=== PATIENT | male | born 1965 | race Caucasian/White ===

== ENCOUNTER 2017-09-11 14:45 | Emergency (ER) | payer MEDICARE ==
[~2017-09-11] VITALS: Ht 190.5 cm; Wt 157.4 kg
[~2017-09-11 14:45] MED LIST: BUMEX; BUMEX1 MG PO; COLCRYS0.6 MG PO; DEMADEX10 MG PO; K-DUR20 ME1; KLOR-CON M2020 MEQ PO; LUNESTA1 MG PO; METFORMIN HCL500 M2 PO; METOLAZONE5 MG PO; NORCO 5-325 TA1 EACH PO; TEMAZEPAM; ULORIC80 MG PO; Z.0.ALDACTONE25 MG; Z.0.COREG12.5 MG; Z.0.PRINIVIL20 MG PO
[2017-09-11] MEDS ORDERED: GABAPENTIN300 MG PO (15:59)
[2017-09-11 16:11] VITALS: BP 110/72
== END 2017-09-11 16:06 | disposition home or self-care (01) ==
LOC: FSED 14:45
DX: M79.662 Pain in left lower leg (principal); S84.12XA Injury of peroneal nerve at lower leg level, left leg, initial encounter; G62.9 Polyneuropathy, unspecified; B35.1 Tinea unguium
CPT/HCPCS: 99284

== ENCOUNTER 2018-09-01 16:28 | Emergency (ER) | payer MEDICARE ==
[~2018-09-01] VITALS: Ht 190.5 cm; Wt 160.1 kg
[~2018-09-01 16:28] MED LIST changes: +GABAPENTIN300 MG PO
--- OUTSIDE RECORDS SUMMARY | 2018-09-01 16:33 | XMS REPORT | Clinical Summary ---
Author Author [facility] Address Unknown Phone Unavailable Care Team Providers Care Integrity Assessor Name Role Phone Asked, No Pcp PCP Unavailable Allergies Not on File Medications Not on file Active Problems Not on file Encounters Care Team Description Date Type Specialty Janki Hampton MD Diabetic foot ulcer with osteomyelitis (HCC) (Primary Dx) 04/19/2018 Lab Lab Janki Hampton MD 04/19/2018 Orders Only General Internal Medicine Mukund Rasheed RN 04/04/2018 Orders Only Wound Care Janki Hampton MD Open wound (Primary Dx) 03/29/2018 Transcribe Wound Care Orders after 08/31/2017 Social History Date Tobacco Use Types Packs/Day Years Used Never Assessed Sex Assigned at Date Recorded Not on file Industry Job Start Date Occupation Not on file Not on file Not on file Travel End Travel History Travel Start No recent travel history available. Last Filed Vital Signs Not on file Plan of Treatment Health Maintenance Due Date Last Done Comments DIABETIC RETINAL EYE EXAM 1964 DIABETIC FOOT EXAM 1974 URINE MICROALBUMIN 1974 COLONOSCOPY SCREENING 2014 SHINGLES VACCINES (#1) 2014 INFLUENZA VACCINE 09/20/2018 02/01/2016 Procedures Comments Procedure Name Priority Date/Time Associated Diagnosis GRAM STAIN Routine 04/19/2018 3:59 PM ICT DEVELOPMENT MANAGER AEROBIC CULTURE Routine 04/19/2018 3:59 PM ICT DEVELOPMENT MANAGER SURGICAL PATHOLOGY Routine 04/19/2018 REQUEST 9:20 AM ICT DEVELOPMENT MANAGER after 08/31/2017 Results * Aerobic culture (04/19/2018 3:59 PM ICT DEVELOPMENT MANAGER) Aerobic culture Staphylococcus aureus [place] isolate [facility] [place] This organism is Methicillin [facility]OSPITAL Resistant. (A) Comment: Specimen Information Specimen Source: Wound Specimen Site: LegLeft Aerobic culture Enterobacter cloacae complex [place] isolate [facility] The performance HOSPITAL characteristics of this assay on this isolate were validated by the Microbiology Laboratory at [facility].This source has not been approved by the U.S. Food and Drug Administration.The results are not intended to be used as the sole means for clinical diagnosis or patient management.The Microbiology Laboratory is authorized under the clinical Laboratory Improvement Amendments of 1988 (CLIA-88) to perform high complexity testing. (A) Specimen Wound Antibiotic Method Susceptibility Organism Ampicillin YANET mcg/mL: Resistant Staphylococcus aureus Clindamycin YANET >2 mcg/mL: Resistant Staphylococcus aureus Cefazolin YANET mcg/mL: Resistant Staphylococcus aureus Erythromycin YANET >4 mcg/mL: Resistant Staphylococcus aureus Linezolid YANET 2 mcg/mL: Susceptible Staphylococcus aureus Minocycline YANET 8 mcg/mL: Resistant Staphylococcus aureus Oxacillin YANET >2 mcg/mL: Resistant Staphylococcus aureus Penicillin G YANET >1 mcg/mL: Resistant Staphylococcus aureus Rifampin YANET <=0.5 mcg/mL: Susceptible Staphylococcus aureus Trimethoprim/Sulfamethoxazole YANET <=0.5/9.5 mcg/mL: Susceptible Staphylococcus aureus Tetracycline YANET >8 mcg/mL: Resistant Staphylococcus aureus Vancomycin YANET 1 mcg/mL: Susceptible Staphylococcus aureus Ampicillin YANET >16 mcg/mL: Resistant Enterobacter cloacae complex Amoxicillin/Clavulanate YANET >16/8 mcg/mL: Resistant Enterobacter cloacae complex Amikacin YANET <=4 mcg/mL: Susceptible Enterobacter cloacae complex Aztreonam YANET <=1 mcg/mL: Susceptible Enterobacter cloacae complex Ceftazidime YANET <=0.5 mcg/mL: Susceptible Enterobacter cloacae complex Ciprofloxacin YANET <=0.5 mcg/mL: Susceptible Enterobacter cloacae complex Ceftriaxone YANET <=0.5 mcg/mL: Susceptible Enterobacter cloacae complex Cefuroxime Sodium YANET >16 mcg/mL: Resistant Enterobacter cloacae complex Cefazolin YANET >32 mcg/mL: Resistant Enterobacter cloacae complex Cefepime YANET <=0.5 mcg/mL: Susceptible Enterobacter cloacae complex Cefoxitin YANET >16 mcg/mL: Resistant Enterobacter cloacae complex Gentamicin YANET 1 mcg/mL: Susceptible Enterobacter cloacae complex Levofloxacin YANET <=1 mcg/mL: Susceptible Enterobacter cloacae complex Meropenem YANET <=0.125 mcg/mL: Susceptible Enterobacter cloacae complex Tobramycin YANET 1 mcg/mL: Susceptible Enterobacter cloacae complex Ampicillin/Sulbactam YANET 16/8 mcg/mL: Resistant Enterobacter cloacae complex Trimethoprim/Sulfamethoxazole YANET <=0.5/9.5 mcg/mL: Susceptible Enterobacter cloacae complex Tetracycline YANET 2 mcg/mL: Susceptible Enterobacter cloacae complex Piperacillin/Tazobactam YANET <=2/4 mcg/mL: Susceptible Enterobacter cloacae complex Ertapenem YANET <=0.125 mcg/mL: Susceptible Enterobacter cloacae complex Tigecycline YANET <=0.5 mcg/mL: Susceptible Enterobacter cloacae complex Performing Organization Address City/[facility] Phone Number [facility] [place] [address] PATHOLOGY AND GENOMIC MEDICINE [address] * Gram stain (04/19/2018 3:59 PM ICT DEVELOPMENT MANAGER) Gram stain Rare WBC's [place] isolate Many Gram positive cocci in [facility] Comment: Specimen Information Specimen Source: Wound Specimen Site: LegLeft Specimen Wound Performing Organization Address [facility] Centercode Phone Number [facility] DEPARTMENT OF [address] [place] [address] PATHOLOGY AND GENOMIC MEDICINE [address] * Surgical pathology request (04/19/2018 9:20 AM ICT DEVELOPMENT MANAGER) [facility] DEPARTMENT OF PATHOLOGY AND GENOMIC MEDICINE Surgical See link below for PDF Lab [facility] DEPARTMENT pathology Report OF PATHOLOGY report AND GENOMIC MEDICINE Result status This is Final Report for [facility] DEPARTMENT [id number] OF PATHOLOGY AND GENOMIC MEDICINE Specimen Performing Organization Address [facility] Centercode Phone Number [facility] DEPARTMENT OF [address] [place] [address] PATHOLOGY AND GENOMIC MEDICINE after 08/31/2017 Insurance Type Payer Benefit Subscriber ID Effective Phone Address Plan / Dates Group HMO AETNA MEDICARE AETNA xxxxxxxx [id number] MEDICARE resent HMO/PPO [facility] Advance Directives Patient has advance care planning documents on file. For more information, michael e contact: Pal Barbosa [address] [place] [address]
--- OUTSIDE RECORDS SUMMARY | 2018-09-01 16:34 | XMS REPORT | Clinical Summary ---
Author Author [facility] Address Unknown Phone Unavailable Care Team Providers Care [employer] Name Role Phone Pcp, No PCP Unavailable Seth Lira Unavailable Allergies Comments Active Allergy Reactions Severity Noted Date Congestion Mold Extracts Other (See High 11/08/2013 Comments) Headache Nitroglycerin Nausea And High 11/08/2013 Vomiting, Other (See Comments) Break out in a sweat Ondansetron Hcl (Pf) Nausea Only, High 11/08/2013 Other (See Comments) Medications End Date Status Medication Sig Dispensed Refills Start Date Active CHOLECALCIFEROL, VITAMIN Take 2 0 D3, (VITAMIN D3 ORAL) capsules by mouth daily . Active COQ10, UBIQUINOL, ORAL Take 1 tablet 0 by mouth daily. Active MULTIVIT-MIN/FA/LYCOPEN/L Take 1 tablet 0 UTEIN (CENTRUM SILVER MEN by mouth ORAL) daily. Active potassium chloride SA Take 1 tablet 180 tablet 3 (K-DUR,KLOR-CON) 20 MEQ (20 mEq 8 tablet total) by mouth 2 (two) times daily. Active loratadine (CLARITIN) 10 Take 10 mg by 0 mg tablet mouth daily as needed . Active pen needle, diabetic 31 Use 4 times 100 each 1 gauge x 3/16" Ndle daily as 8 needed. Active eplerenone (INSPRA) 25 MG Take 1 tablet 180 tablet 3 tablet (25 mg total) 8 by mouth 2 (two) times daily. Active traZODone (DESYREL) 50 MG Take 50 mg by 0 tablet mouth every 8 night as needed. Active insulin aspart U-100 Inject 0.1 9 mL 3 (NOVOLOG) 100 unit/mL mLs (10 Units 8 InPn total) subcutaneousl y 3 (three) times daily with meals. Active insulin aspart U-100 10 UNITS tid 18 mL 3 (NOVOLOG) 100 unit/mL AND SLIDING 8 InPn SCALE IF [id number]=8 UNITS, 151-200=6,201 -250=8 ,251-300=10, 301-350=12 UNITS. Active sacubitril-valsartan Take 1 tablet 180 tablet 3 (ENTRESTO) 97-103 mg Tab by mouth 2 8 (two) times daily. Active allopurinol (ZYLOPRIM) Take 1 tablet 90 tablet 1 300 MG tablet (300 mg 9 total) by mouth daily. Active colchicine (COLCRYS) 0.6 Take 1 tablet 90 tablet 0 mg tablet (0.6 mg 9 total) by mouth daily. Active levothyroxine (SYNTHROID, Take 1 tablet 90 tablet 3 LEVOTHROID) 75 MCG tablet (75 mcg 9 total) by mouth Every morning on an empty stomach. 03/22/2019 Active metOLazone (ZAROXOLYN) Take 1 tablet 12 tablet 0 2.5 MG tablet (2.5 mg 9 total) by mouth once a week Mon. Active ascorbate calcium Take by 0 (VITAMIN C ORAL) mouth. Active LEVEMIR FLEXTOUCH U-100 INJECT 55 18 mL 0 INSULN 100 unit/mL (3 mL) UNITS UNDER 9 InPn injection THE SKIN NIGHTLY Active blood sugar diagnostic Blood sugar 200 strip 2 (GLUCOSE BLOOD) check TID. 9 StrpIndications: type 2 diabetes mellitus, insulin dependant Active LEVEMIR FLEXTOUCH U-100 INJECT 55 18 mL 0 INSULN 100 unit/mL (3 mL) UNITS UNDER 9 InPn injection THE SKIN NIGHTLY Active traMADol (ULTRAM-ER) 100 Take 100 mg 0 MG 24 hr tablet by mouth daily as needed for Pain. Active LEVEMIR FLEXTOUCH U-100 INJECT 55 18 mL 0 INSULN 100 unit/mL (3 mL) UNITS UNDER 9 InPn injection THE SKIN NIGHTLY 08/15/2019 Active torsemide (DEMADEX) 100 Take 1 tablet 180 tablet 3 MG tablet (100 mg 9 total) by mouth 2 (two) times daily. Active metoprolol (TOPROL-XL) 25 TAKE 1 TABLET 90 tablet 11 MG 24 hr tablet IN THE 9 MORNING AND 2 TABLETS IN THE EVENING. 08/16/2019 Active amiodarone (PACERONE) 100 Take 1 tablet 30 tablet 3 MG tablet (100 mg 9 total) by mouth daily. Active gabapentin (NEURONTIN) TAKE 1 60 capsule 0 300 MG capsule CAPSULE(300 9 MG) BY MOUTH TWICE DAILY 11/14/2017 Discontinued insulin detemir (LEVEMIR) Inject 50 0 100 unit/mL (3 mL) InPn Units 5 injection subcutaneousl y nightly . 11/13/2017 Discontinued colchicine (COLCRYS) 0.6 TAKE 1 90 tablet 0 mg tablet TABLET(0.6 7 MG) BY MOUTH DAILY 11/02/2017 Discontinued insulin lispro (HUMALOG) Inject 10 0 100 unit/mL InPn Units 5 subcutaneousl y 3 (three) times daily with meals. 09/05/2017 Discontinued metOLazone (ZAROXOLYN) Take 1 tablet 16 tablet 3 2.5 MG tablet (2.5 mg 7 total) by mouth twice a week , Tuesdays. 11/16/2017 amiodarone (PACERONE) 200 Take 1 tablet 90 tablet 3 MG tablet (200 mg 7 total) by mouth daily. 02/15/2018 Discontinued sacubitril-valsartan Take 1 tablet 180 tablet 3 (ENTRESTO) 97-103 mg Tab by mouth 2 7 (two) times daily. 09/05/2017 Discontinued DIPHENHYDRAMINE HCL Take 1 0 (BENADRYL ORAL) capsule by mouth 3 (three) times daily as needed. 09/05/2017 Discontinued eplerenone (INSPRA) 25 MG Take 1 tablet 90 tablet 3 tablet (25 mg total) 8 by mouth 2 (two) times daily. 11/02/2017 Discontinued gabapentin (NEURONTIN) Take 1 30 capsule 5 300 MG capsule capsule (300 8 mg total) by mouth nightly. 11/07/2017 Discontinued pantoprazole (PROTONIX) Take 40 mg by 0 40 MG tablet mouth daily. 09/05/2017 Discontinued DULoxetine (CYMBALTA) 20 Take 20 mg by 0 MG capsule mouth daily. 10/06/2017 Discontinued allopurinol (ZYLOPRIM) Take 100 mg 0 100 MG tablet by mouth daily. 03/22/2018 Discontinued levothyroxine (SYNTHROID, Take 1 tablet 90 tablet 3 LEVOTHROID) 75 MCG tablet (75 mcg 8 total) by mouth Every morning on an empty stomach. 08/16/2018 Discontinued metoprolol (TOPROL-XL) 25 TAKE 1 TABLET 90 tablet 6 MG 24 hr tablet BY MOUTH IN 8 THE MORNING AND 2 TABLETS IN THE EVENING 10/06/2017 Discontinued colchicine (COLCRYS) 0.6 TAKE 1 90 tablet 3 201 mg tablet TABLET(0.6 8 MG) BY MOUTH DAILY 08/15/2018 Discontinued torsemide (DEMADEX) 100 Take 1 tablet 180 tablet 3 201 MG tablet (100 mg 8 total) by mouth 2 (two) times daily. 11/07/2017 Discontinued sertraline (ZOLOFT) 100 Take 100 mg 0 MG tablet by mouth daily. 03/22/2018 Discontinued metOLazone (ZAROXOLYN) Take 1 tablet 12 tablet 3 2.5 MG tablet (2.5 mg 8 total) by mouth once a week 03/09/2018 Discontinued DULoxetine (CYMBALTA) 20 Take 40 mg by 0 MG capsule mouth daily . 02/13/2018 Discontinued allopurinol (ZYLOPRIM) Take 1 tablet 90 tablet 0 300 MG tablet (300 mg 8 total) by mouth daily. 03/22/2018 Discontinued gabapentin (NEURONTIN) Take 1 60 capsule 2 300 MG capsule capsule (300 8 mg total) by mouth 2 (two) times daily. 02/14/2018 Discontinued colchicine (COLCRYS) 0.6 Take 1 tablet 90 tablet 0 09/24/201 mg tablet (0.6 mg 8 total) by mouth daily. 06/11/2018 Discontinued insulin detemir U-100 Inject 0.55 18 mL 2 (LEVEMIR) 100 unit/mL (3 mLs (55 Units 8 mL) InPn injection total) subcutaneousl y nightly. 03/09/2018 Discontinued UBIQUINONE ORAL Take by 0 mouth. 01/15/2018 acetaminophen-codeine Take 1 tablet 30 tablet 0 (TYLENOL-CODEINE #3) by mouth 8 300-30 mg per tablet every 4 (four) hours as needed for Pain for up to 10 days. Max Daily Amount: 6 tablets 03/22/2018 Discontinued allopurinol (ZYLOPRIM) TAKE 1 90 tablet 0 300 MG tablet TABLET(300 8 MG) BY MOUTH DAILY 03/22/2018 Discontinued colchicine (COLCRYS) 0.6 TAKE 1 90 tablet 0 mg tablet TABLET(0.6 8 MG) BY MOUTH DAILY 08/30/2018 Discontinued gabapentin (NEURONTIN) Take 1 60 capsule 2 300 MG capsule capsule (300 9 mg total) by mouth 2 (two) times daily. 04/01/2018 acetaminophen-codeine Take 1 tablet 30 tablet 0 (TYLENOL-CODEINE #4) by mouth 9 300-60 mg per tablet every 4 (four) hours as needed for Pain for up to 10 days. Max Daily Amount: 6 tablets 04/01/2018 mINOCYCLine Take 1 20 capsule 0 (MINOCIN,DYNACIN) 100 MG capsule (100 9 capsule mg total) by mouth 2 (two) times daily for 10 days. 06/03/2018 traMADol (ULTRAM) 50 mg Take 1 tablet 30 tablet 0 tablet (50 mg total) 9 by mouth every 6 (six) hours as needed for Pain for up to 10 days. Max Daily Amount: 200 mg 06/03/2018 traMADol (ULTRAM) 50 mg Take 1 tablet 20 tablet 0 tablet (50 mg total) 9 by mouth every 6 (six) hours as needed for Pain for up to 10 days. Max Daily Amount: 200 mg 07/01/2018 traMADol (ULTRAM) 50 mg Take 1 tablet 12 tablet 0 tablet (50 mg total) 9 by mouth every 6 (six) hours as needed for Pain for up to 3 days. Max Daily Amount: 200 mg Active Problems Patient Care Coordination Note Interim Testing 2D echo 06/15/18 Summary 1. LV is moderately enlarged. LV function is severely reduced. LVEF is 20-24% LVIDd: 6.4 cm 2. Diastology: Not well evaluated 3. Normal Rv size. Depressed RV function 4. Mild TR. Estimated PASP is 55-60 mm Hg 5. No pericardial effusion ICD Interrogation:03/09/2018 Normal Device function, No therapies, Event monitor, 11/07/17-11/18/17: Findings: Patient had a min HR of 57 bpm, max HR of 119 bpm, and avg HR of 77 bpm. Predominant underlying rhythm was Sinus Rhythm. Intermittent Bundle Branch Block was present. 1 run of Ventricular Tachycardia occurred lasting 4 beats with a max rate of 115 bpm (avg 103 bpm). 1 run of Supraventricular Tachycardia occurred lasting 8 beats with a max rate of 119 bpm (avg 108 bpm). Possible Accelerated Idioventricular Rhythm was present. Isolated SVEs were rare (<1.0%), SVE Couplets were rare (<1.0%), and SVE Triplets were rare (<1.0%). Isolated VEs were occasional (5.0%, 89215), VE Couplets were rare (<1.0%, 633), and VE Triplets were rare (<1.0%, 30). Ventricular Bigeminy and Trigeminy were present. CXR, 03/21/17 IMPRESSION: Two frontal and two lateral images of the chest were provided. The cardiac silhouette is enlarged. There is pulmonary vascular congestion with interstitial reticulation suggesting mild edema. There is no pneumothorax or pleural effusion. Median sternotomy changes and a left chest ICD are noted. There are degenerative spine changes with stable thoracolumbar vertebral wedging dating to 11/04/2015. ICD interrogation 08/05/16 - Normal ICD function is observed - Battery status not at replacement time - Since last interrogation 11/04/14, detected 1 VF episode of sudden onset - V>A conduction, rate 261 bpm - ATP delivered successfully - 12 VT monitor zone and 15 NS-VT episodes US Abd 05/31/2016 1) Complete ultrasound examination of the abdomen was performed. The liver is enlarged measuring 19.1 cm in length along the right midclavicular line and homogeneous in echo-texture without evidence of a focal mass. 2) The patient is status post cholecystectomy. The biliary tract is within normal limits with the common bile duct measuring 3 mm in maximum diameter. 3) The visualized portions of the pancreas are within normal limits. 4) The spleen is enlarged measuring 14.8 cm in length. 5) The right kidney measures 13.9 cm and the left kidney 12.3 cm in maximum size. There is no evidence of cysts, masses, stones or hydronephrosis. 6) The portal vein measures to a maximum of 1.2 cm in diameter. 7) There is no ascites or pleural effusion. 8) The visualized inferior vena cava, hepatic veins and abdominal aorta are within normal limits. 9) The maximum diameter of the abdominal aorta is 2.4 cm. IMPRESSION : Hepatosplenomegaly. Pertinent Tests: Echocardiogram: [03/17/2014] 1. Adequate endocardial definition with contrast agent. 2. The left ventricle is severely dilated. Global LV hypokinesis. 3. Severely decreased overall LV systolic function. Estimated LVEF is 20%. 4. The PA systolic pressure is estimated at 40-45 mmHg. 5. There are changes noted when compared to the previous study done on 02/17/2014, worsening LV function. Ventilation-Perfusion Scan: [] 1. Abnormal exam suggestive of enlarged heart and parenchymal lung disease. 2. Hepatic activity in the washout phase is suggestive of fatty liver. Echocardiogram: [02/17/2014] 1. The endocardium is partially visualized. Even after definity contrast (due to apical foreshortening in part) 2. The left ventricle is moderately dilated. by parasternal dimensions 3. Global LV hypokinesis. 4. Severely decreased overall LV systolic function. based on rather limited windows. Unable to estimate LVEF, but appears < 30% by available views. 5. There is no evidence of aortic regurgitation. 6. Estimated PA systolic pressure is estimated at 30mmHg plus RA pressure. 7. The inferior vena cava is not well visualized. Appears large (high RA pressure) by limited views. 8. There are changes noted when compared to the previous study done on 06/24/11: LV function has significantly worsened and the LV is now moderately dilated, although unable to open prior images. 9. The LVOT VTI is increased (and not decreased) and the reason is not clear. 10. RHC [02/12/14 (at OSH)] PA 45/20/26, RV 45/10, RA 8-10 Cardiac output 3.3L/min (calculated CI 1.14L/min/M2). Left Heart Cath [02/12/14 (at OSH)] eCoronaries normal and right-dominant LVEDP 20-22mmHg Cath: [02/19/2014] RA RV 47/25 PA 47//36 PCWP Shahid CO 5.96 Shahid CI 2.04 Thermodilution CO 6.15 Thermodilution CI 2.11 PVR 1.3WU CXR: [02/16/2014] 1. Cardiomegaly. 2. No acute abnormality. 3. Single-lead in place / ICD generator (likely Medtronic) Problem Noted Date Venous insufficiency 06/28/2018 Venous insufficiency of both lower extremities 05/24/2018 Acute on chronic combined systolic (congestive) and diastolic (congestive) 06/22/2016 heart failure Chronic cutaneous venous stasis ulcer 05/22/2016 Paroxysmal atrial fibrillation 05/22/2016 Diabetes mellitus, insulin dependent (IDDM), controlled 05/22/2016 Cardiomyopathy 03/03/2016 Chronic thromboembolic pulmonary hypertension 02/25/2016 Anxiety 02/25/2016 Chronic kidney disease (CKD) stage G3a/A1, moderately decreased glomerular 02/25/2016 filtration rate (GFR) between 45-59 mL/min/1.73 square meter and albuminuria creatinine ratio less than 30 mg/g AVNRT (AV tee re-entry tachycardia) 01/20/2016 Overview: S/p RFA Pancreatic insufficiency 01/20/2016 Chronic combined systolic and diastolic CHF (congestive heart failure) 05/15/2015 AICD (automatic cardioverter/defibrillator) present,single lead ( 06/05/2014 Medtronic) PTSD (post-traumatic stress disorder) 05/16/2014 Hypothyroid 05/12/2014 Depression 05/12/2014 Hypertension 03/07/2014 AGUSTIN (obstructive sleep apnea) 03/07/2014 Morbid obesity with body mass index of 50 or higher 03/01/2014 Obesity CPAP (continuous positive airway pressure) dependence AICD (automatic cardioverter/defibrillator) present Overview: Medtronic Primary insomnia Encounters Care Team Description Date Type Specialty Tay Phoenix MD 08/30/2018 Refill Cardiology Emanuel Brown RN 08/16/2018 Documentation Transplant Emanuel Brown RN 08/16/2018 Orders Only Transplant Emanuel Brown RN 08/15/2018 Documentation Transplant Emanuel Brown RN 08/15/2018 Orders Only Transplant Tay Phoenix MD 08/04/2018 Refill Cardiology Priyank Hummel MD Chronic combined systolic and diastolic CHF (congestive heart failure) (HCC); Hypothyroidism, unspecified type 07/03/2018 Office Visit Transplant 07/03/2018 Orders Only General Internal Medicine Sherie Askew 07/02/2018 Documentation Transplant Byron Carter MD 06/28/2018 Anesthesia Event Bam Galloway MD ABLATION,ENDOVENOUS 06/28/2018 Surgery Bam Galloway MD 06/28/2018 Hospital Encounter Tay Phoenix MD 06/27/2018 Refill Cardiology Tay Phoenix MD 06/27/2018 Refill Cardiology Joie Murray RN Chronic combined systolic and diastolic CHF (congestive heart failure) (HCC) (Primary Dx); Hypothyroidism, unspecified type 06/18/2018 Orders Only Transplant Priyank Hummel MD Chronic combined systolic and diastolic CHF (congestive heart failure) (HCC) 06/15/2018 Hospital Cardiology Encounter Peggy Amato RN Chronic combined systolic and diastolic CHF (congestive heart failure) (HCC) (Primary Dx) 06/15/2018 Orders Only Transplant Tay Phoenix MD 06/11/2018 Refill Cardiology Steph Sorto, OSKAR 05/24/2018 Anesthesia Event Bam Galloway MD ABLATION,ENDOVENOUS 05/24/2018 Surgery Bam Galloway MD 05/24/2018 Hospital Encounter Steph Sorto, OSKAR 05/16/2018 Anesthesia Pre-Admission Testing Event Bam Galloway MD 05/16/2018 Hospital Pre-Admission Testing Encounter Bam Galloway MD 05/16/2018 Hospital Cardiology Encounter Bam Galloway MD 05/16/2018 Hospital Pre-Admission Testing Encounter Resource, Oqmt Preadmit Phone 05/15/2018 Hospital Pre-Admission Testing Encounter Resource, Oqme Preadmit Phone 05/15/2018 Hospital Pre-Admission Testing Encounter Sherie Askew 05/03/2018 Telephone Transplant Tay Phoenix MD Chronic systolic heart failure (HCC) (Primary Dx); AGUSTIN (obstructive sleep apnea); Hypothyroidism, unspecified type; Venous stasis ulcer of left ankle with fat layer exposed without varicose veins (HCC); Venous ulcer (HCC) 03/22/2018 Office Visit Cardiology Tay Phoenix MD 03/22/2018 Refill Cardiology Tay Phoenix MD 03/17/2018 Refill Cardiology Sherie Askew 03/14/2018 Documentation Central Scheduling Priyank Hummel MD Chronic combined systolic and diastolic CHF (congestive heart failure) (HCC); Dilated cardiomyopathy (HCC); Diabetes mellitus, insulin dependent (IDDM), controlled (HCC) 03/09/2018 Office Visit Transplant Sharda Guerra RN 03/09/2018 Telephone Cardiology Sherie Askew 02/22/2018 Documentation Transplant Emanuel Brown RN 02/15/2018 Documentation Transplant Emanuel Brown RN 02/15/2018 Orders Only Transplant Tay Phoenix MD 02/14/2018 Refill Cardiology Tay Phoenix MD 02/13/2018 Refill Cardiology Sherie Askew 02/01/2018 Telephone Transplant Janki Hampton MD No Show 01/08/2018 Office Visit Wound Care Tay Phoenix MD Chronic systolic heart failure (HCC) (Primary Dx); AGUSTIN (obstructive sleep apnea); Hypothyroidism, unspecified type; Dilated cardiomyopathy (HCC); Type 2 diabetes mellitus without complication, with long-term current use of insulin (HCC); Chronic kidney disease (CKD) stage G3a/A1, moderately decreased glomerular filtration rate (GFR) between 45-59 mL/min/1.73 square meter and albuminuria creatinine ratio less than 30 mg/g (HCC); Morbid obesity with body mass index of 50 or higher (HCC); Chronic combined systolic and diastolic CHF (congestive heart failure) (HCC) 01/05/2018 Office Visit Cardiology Joie Murray RN Chronic combined systolic and diastolic CHF (congestive heart failure) (HCC) (Primary Dx) 12/19/2017 Orders Only Transplant Janki Hampton MD 12/14/2017 Office Visit Wound Tay Diaz MD 11/14/2017 Refill Cardiology Tay Phoenix MD 11/13/2017 Refill Cardiology Priyank Hummel MD Chronic combined systolic and diastolic CHF (congestive heart failure) (HCC); Dilated cardiomyopathy (HCC); On amiodarone therapy 11/07/2017 Office Visit Transplant Tay Phoenix MD 11/02/2017 Refill Cardiology Sharda Guerra RN 11/02/2017 Telephone Cardiology Tay Phoenix MD 11/02/2017 Refill Cardiology Janki Hampton MD 10/30/2017 Office Visit Wound Joie Pinon RN Chronic combined systolic and diastolic CHF (congestive heart failure) (HCC) (Primary Dx); AICD (automatic cardioverter/defibrillator) present,single lead ( Medtronic) 10/10/2017 Orders Only Transplant Tay Phoenix MD Other secondary chronic gout of elbow with tophus, unspecified laterality (Primary Dx); Dilated cardiomyopathy (HCC); AGUSTIN (obstructive sleep apnea); Chronic kidney disease (CKD) stage G3a/A1, moderately decreased glomerular filtration rate (GFR) between 45-59 mL/min/1.73 square meter and albuminuria creatinine ratio less than 30 mg/g 10/06/2017 Office Visit Cardiology Sharda Guerra RN 10/06/2017 Telephone Cardiology Tay Phoenix MD 10/06/2017 Orders Only Cardiology Janki Hampton MD 09/25/2017 Office Visit Wound Care Sharda Guerra RN 09/20/2017 Telephone Cardiology Sharda Guerra RN 09/19/2017 Telephone Cardiology Sharda Guerra RN 09/11/2017 Telephone Cardiology Priyank Hummel MD Chronic combined systolic and diastolic CHF (congestive heart failure) (HCC); Dilated cardiomyopathy (HCC); On amiodarone therapy; Diabetes mellitus, insulin dependent (IDDM), controlled (HCC) 09/05/2017 Office Visit Transplant 09/05/2017 Orders Only General Internal Medicine after 08/31/2017 Immunizations Name Dates Previously Given Next Due Influenza TIV (IM) 12/30/2016, 03/06/2014 Pneumococcal Conjugate 03/06/2012 7-Valent Family History Medical History Relation Name Comments Diabetes Father Hypertension Father Hyperlipidemia Mother Hypertension Mother Relation Name Status Comments Father Mother Social History Date Tobacco Use Types Packs/Day Years Used Former Smoker Smokeless Tobacco: Never Used Alcohol Use Drinks/Week oz/Week Comments No Sex Assigned at Date Recorded Not on file Industry Job Start Date Occupation Not on file Not on file Not on file Travel End Travel History Travel Start No recent travel history available. Last Filed Vital Signs Time Taken Vital Sign Reading 07/03/2018 1:53 PM CDT Blood Pressure 93/52 07/03/2018 1:53 PM CDT Pulse 82 07/03/2018 1:53 PM CDT Temperature 36.5 C (97.7 F) 07/03/2018 1:53 PM CDT Respiratory Rate 20 07/03/2018 1:53 PM CDT Oxygen Saturation 96% - Inhaled Oxygen - Concentration 07/03/2018 1:53 PM CDT Weight 159.2 kg (351 lb) 07/03/2018 1:53 PM CDT Height 190.5 cm (6' 3") 07/03/2018 1:53 PM CDT Body Mass Index 43.87 Plan of Treatment Care Team Description Date Type Specialty Priyank Hummel MD [address] [facility] [id number] [place] [address] [phone] 10/02/2018 Office Visit Transplant Procedures Comments Procedure Name Priority Date/Time Associated Diagnosis CBC W/PLT COUNT & AUTO STAT 07/03/2018 Chronic combined systolic DIFFERENTIAL 2:11 PM CDT and diastolic CHF (congestive heart failure) (HCC) TSH/FREE T4 IF INDICATED Routine 07/03/2018 Hypothyroidism, 2:11 PM CDT unspecified type BASIC METABOLIC PANEL (7) STAT 07/03/2018 Chronic combined systolic 2:11 PM CDT and diastolic CHF (congestive heart failure) ([facility]) CBC W/PLT COUNT & AUTO STAT 07/03/2018 Chronic combined systolic DIFFERENTIAL 2:11 PM CDT and diastolic CHF (congestive heart failure) ([facility]) ECG 12-LEAD Routine 07/03/2018 10:55 AM CDT Procedure Note - Interface, External Ris In - 07/03/2018 3:27 PM CDT Ventricula r Rate 69 BPM Atrial Rate 69 BPM P-R Interval 156 ms QRS Duration 116 ms Q-T Interval 480 ms QTC Calculatio n(Bazett) 514 ms P [place] 45 degrees R [place] 6 degrees T [place] 73 degrees Normal sinus rhythm Prolonged QT Abnormal ECG When compared with ECG of 9 15:05, No significan t change was found ECG 12-LEAD Routine 07/03/2018 Chronic combined systolic 10:55 AM CDT and diastolic CHF (congestive heart failure) ([facility]) POCT-GLUCOSE METER Routine 06/28/2018 12:17 PM CDT ABLATION,ENDOVENOUS 06/28/2018 Venous reflux 9:30 AM CDT Special Needs Hx of PTSD related to past OR experience (see notes). BASIC METABOLIC PANEL (7) Routine 06/28/2018 7:59 AM CDT BUN AND CREATININE Routine 06/28/2018 7:59 AM CDT HEMOGLOBIN Routine 06/28/2018 7:59 AM CDT POCT-GLUCOSE METER Routine 06/28/2018 7:57 AM CDT ECHOCARDIOGRAM REPORT - 06/15/2018 SCAN 9:22 PM CDT 2D ECHO W/ DOPPLER Routine 06/15/2018 Chronic combined systolic (CW/PW/COLOR) 2:31 PM CDT and diastolic CHF (congestive heart failure) ([facility]) ARRYTHMIA IMPLANT REPORT 06/01/2018 - SCAN 3:31 PM CDT ARRYTHMIA IMPLANT REPORT 06/01/2018 - SCAN 5:50 AM CDT TRANSFUSION SERVICE 05/25/2018 REPORT - SCAN 5:55 PM CDT RHYTHM STRIP - SCAN 05/25/2018 1:23 PM CDT HGB/HCT (H&H) - STAT LAB Routine 05/24/2018 8:55 AM CDT GLUCOSE-STAT LAB Routine 05/24/2018 8:55 AM CDT POTASSIUM-STAT LAB Routine 05/24/2018 8:55 AM CDT SODIUM NA-STAT LAB Routine 05/24/2018 8:55 AM CDT BLOOD GAS, ARTERIAL Routine 05/24/2018 8:55 AM CDT RRL CRITICAL LABS Routine 05/24/2018 (ABG,NA,K,H&H,GLUCOSE) 8:55 AM CDT ABLATION,ENDOVENOUS 05/24/2018 Venous reflux 7:30 AM CDT Special Needs Pt has PTSD related to past OR experience . See notes. TYPE AND SCREEN, STAT 05/24/2018 AUTOMATED 7:05 AM CDT POCT-GLUCOSE METER Routine 05/24/2018 5:58 AM CDT HEMOGLOBIN Routine 05/16/2018 2:26 PM CDT GLUCOSE Routine 05/16/2018 2:26 PM CDT ELECTROLYTE PANEL Routine 05/16/2018 2:26 PM CDT BUN AND CREATININE Routine 05/16/2018 2:26 PM CDT ECG 12-LEAD Routine 03/09/2018 3:05 PM [employer] [employer] [employer] Procedure Note - Interface, External Ris In - 03/09/2018 3:11 PM [employer] Ventricula r Rate 73 BPM Atrial Rate 73 BPM P-R Interval 162 ms QRS Duration 120 ms Q-T Interval 494 ms QTC Calculatio n(Bazett) 544 ms P [place] 33 degrees R [place] -7 degrees T [place] 48 degrees Normal sinus rhythm Non-specif ic intra-vent ricular conduction delay Borderline [place] [address] 8 12:40, Premature ventricula r complexes are no longer Present Aberrant conduction is no longer Present ECG 12-LEAD Routine 03/09/2018 Chronic combined systolic 3:05 PM [employer]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 (congestive heart failure) (HCC) Dilated cardiomyopathy (HCC) CBC W/PLT COUNT & AUTO STAT 03/09/2018 Chronic combined systolic DIFFERENTIAL 1:43 PM [employer]EARCH 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 (congestive heart failure) ([facility]) HEMOGLOBIN A1C AP Routine 03/09/2018 Diabetes mellitus, 1:43 PM [employer]Y insulin dependent (IDDM), controlled ([facility]) BASIC METABOLIC PANEL (7) STAT 03/09/2018 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 [employer]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 (congestive heart failure) ([facility]) CBC W/PLT COUNT & AUTO STAT 03/09/2018 Chronic combined systolic DIFFERENTIAL 1:43 PM [employer]LE[employer]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 (congestive heart failure) (HCC) MISCELLANEOUS LAB ORDER Routine 03/09/2018 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 (congestive heart failure) ([facility]) BASIC METABOLIC PANEL (7) Routine 01/05/2018 Chronic systolic heart 10:54 AM [employer]EARCH ASSOC[employer]ATE MOLECULAR BIOLOGY failure (HCC) MISCELLANEOUS LAB ORDER Routine 11/07/2017 Chronic combined systolic 12:49 PM CDT and diastolic CHF (congestive heart failure) ([facility]) CBC W/PLT COUNT & AUTO STAT 11/07/2017 Chronic combined systolic DIFFERENTIAL 12:43 PM CDT and diastolic CHF (congestive heart failure) (HCC) TSH/FREE T4 IF INDICATED Routine 11/07/2017 Chronic combined systolic 12:43 PM CDT and diastolic CHF (congestive heart failure) (HCC) On amiodarone therapy BASIC METABOLIC PANEL (7) STAT 11/07/2017 Chronic combined systolic 12:43 PM CDT and diastolic CHF (congestive heart failure) (HCC) CBC W/PLT COUNT & AUTO STAT 11/07/2017 Chronic combined systolic DIFFERENTIAL 12:43 PM CDT and diastolic CHF (congestive heart failure) (HCC) ECG 12-LEAD Routine 11/07/2017 12:40 PM CDT Procedure Note - Interface, External Ris In - 11/07/2017 3:36 PM CDT Ventricula r Rate 81 BPM Atrial Rate 81 BPM P-R Interval 156 ms QRS Duration 106 ms Q-T Interval 442 ms QTC Calculatio n(Bazett) 513 ms P [place] 43 degrees R [place] 1 degrees T [place] 62 degrees Sinus rhythm with occasional Premature ventricula r complexes and Possible Premature atrial complexes with Aberrant conduction Low voltage QRS Cannot rule out Anterior infarct (cited on or before 8) Prolonged QT Abnormal ECG When compared with ECG of 8 14:47, No significan t change was found ECG 12-LEAD Routine 11/07/2017 Chronic combined systolic 12:40 PM CDT and diastolic CHF (congestive heart failure) ([facility]) Dilated cardiomyopathy ([facility]) URIC ACID STAT 10/06/2017 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, unspecified laterality ECG 12-LEAD Routine 09/05/2017 2:47 PM CDT Procedure Note - Interface, External Ris In - 09/05/2017 2:55 PM CDT Ventricula r Rate 74 BPM Atrial Rate 74 BPM P-R Interval 156 ms QRS Duration 114 ms Q-T Interval 494 ms QTC Calculatio n(Bazett) 548 ms P [place] 40 degrees R [place] -19 degrees T [place] 111 degrees Sinus rhythm with occasional Premature ventricula r complexes and Possible Premature atrial complexes with Aberrant conduction Cannot rule out Anterior infarct , age undetermin ed Prolonged QT Abnormal ECG When compared with ECG of 8 15:05, Aberrant conduction is now Present ECG 12-LEAD Routine 09/05/2017 Chronic combined systolic 2:47 PM CDT and diastolic CHF (congestive heart failure) ([facility]) Dilated cardiomyopathy ([facility]) CBC W/PLT COUNT & AUTO STAT 09/05/2017 Chronic combined systolic DIFFERENTIAL 2:34 PM CDT and diastolic CHF (congestive heart failure) ([facility]) HEMOGLOBIN A1C AP Routine 09/05/2017 Diabetes mellitus, 2:34 PM CDT insulin dependent (IDDM), controlled (HCC) TSH/FREE T4 IF INDICATED Routine 09/05/2017 Chronic combined systolic 2:34 PM CDT and diastolic CHF (congestive heart failure) (HCC) On amiodarone therapy HEPATIC FUNCTION PANEL STAT 09/05/2017 Chronic combined systolic 2:34 PM CDT and diastolic CHF (congestive heart failure) (HCC) On amiodarone therapy BASIC METABOLIC PANEL (7) STAT 09/05/2017 Chronic combined systolic 2:34 PM CDT and diastolic CHF (congestive heart failure) (HCC) CBC W/PLT COUNT & AUTO STAT 09/05/2017 Chronic combined systolic DIFFERENTIAL 2:34 PM CDT and diastolic CHF (congestive heart failure) (HCC) after 08/31/2017 Results * TSH/Free T4 If Indicated (07/03/2018 2:11 PM CDT) Only the most recent of 3 results within the time period is included. TSH 1.89 0.35 - 4.94 uIU/mL [facility] Specimen Blood Performing Organization Address City/State/Zipcode Phone Number [facility] [address] [place] [address] [facility] * CBC with platelet count + automated diff (07/03/2018 2:11 PM CDT) Only the most recent of 4 results within the time period is included. WBC 3.8 3.5 - 10.5 K/L [facility] RBC 4.55 (L) 4.63 - 6.08 M/L [facility] Hemoglobin 13.7 13.7 - 17.5 GM/DL [facility] Hematocrit 41.8 40.1 - 51.0 % [facility] MCV 91.9 79.0 - 92.2 fL [facility] MCH 30.1 25.7 - 32.2 pg [facility] MCHC 32.8 32.3 - 36.5 GM/DL [facility] RDW 15.8 (H) 11.6 - 14.4 % [facility] Platelets 143 (L) 150 - 450 K/CU MM [facility] MPV 9.9 9.4 - 12.4 fL [facility] nRBC 0 0 - 0 /100 WBC [facility] % Neutros 54 % [facility] % Lymphs 28 % [facility] % Monos 14 % [facility] % Eos 3 % [facility] % Baso 1 % [facility] # Neutros 2.06 1.78 - 5.38 K/L [facility] # Lymphs 1.07 (L) 1.32 - 3.57 K/L [facility] # Monos 0.54 0.30 - 0.82 K/L [facility] # Eos 0.11 0.04 - 0.54 K/L [facility] # Baso 0.04 0.01 - 0.08 K/L [facility] Immature 0 0 - 1 % [facility] Granulocytes-Relative [facility] Specimen Blood Performing Organization Address City/State/Zipcode Phone Number [facility] [address] [place] [address] [facility] * Basic Metabolic Panel (07/03/2018 2:11 PM CDT) Only the most recent of 6 results within the time period is included. Sodium 138 136 - 145 meq/L [facility] Potassium 4.2Comment: Specimen slightly 3.5 - 5.1 meq/L [facility] hemolyzed [facility] Chloride 102 98 - 107 meq/L [facility] CO2 25 22 - 29 meq/L [facility] BUN 52 (H) 7 - 21 mg/dL [facility] Creatinine 1.54 (H)Comment: Specimen 0.57 - 1.25 mg/dL [facility] slightly hemolyzed [facility] Glucose 167 (H) 70 - 105 mg/dL [facility] Calcium 9.7 8.4 - 10.2 mg/dL [facility] EGFR 47Comment: ESTIMATED GFR IS mL/min/1.73 sq m [facility] NOT ACCURATE CREATININE [facility] CLEARANCE IN PREDICTING GLOMERULAR FILTRATION RATE. ESTIMATED GFR IS NOT APPLICABLE FOR DIALYSIS PATIENTS. Specimen Blood Performing Organization Address City/State/Zipcode Phone Number [facility] [address] [place] [address] [facility] * ECG 12 lead (07/03/2018 10:55 AM CDT) Only the most recent of 4 results within the time period is included. Specimen Narrative Performed At Ventricular Rate 69 BPM GE MUSE Atrial Rate 69 BPM P-R Interval 156 ms QRS Duration 116 ms Q-T Interval 480 ms QTC Calculation(Bazett) 514 ms P [place] 45 degrees R [place] 6 degrees T [place] 73 degrees Normal sinus rhythm Prolonged QT Abnormal ECG When compared with ECG of 09-MAR-2018 15:05, No significant change was found Confirmed by Bunny MARCELO, SIERRA ([id number]) on 07/04/2018 1:12:09 PM Procedure Note Interface, External Ris In - 07/04/2018 1:12 PM CDT Ventricular Rate 69 BPM Atrial Rate 69 BPM P-R Interval 156 ms QRS Duration 116 ms Q-T Interval 480 ms QTC Calculation(Bazett) 514 ms P [place] 45 degrees R [place] 6 degrees T [place] 73 degrees Normal sinus rhythm Prolonged QT Abnormal ECG When compared with ECG of 09-MAR-2018 15:05, No significant change was found Confirmed by Bunny MARCELO, SIERRA ([id number]) on 07/04/2018 1:12:09 PM Performing Organization Address City/State/Zipcode Phone Number [facility] * POC-Glucose meter (06/28/2018 12:17 PM CDT) Only the most recent of 3 results within the time period is included. POC-Glucose Meter 150 (H)Comment: TESTED AT 70 - 110 mg/dL [facility] [address] [place] [id number] Specimen Blood Performing Organization Address City/[facility] Phone Number [facility] [address] [place] [address] [phone] [address] * BUN and Creatinine (06/28/2018 7:59 AM CDT) Only the most recent of 2 results within the time period is included. BUN 50 (H) 7 - 21 mg/dL [facility] Creatinine 1.35 (H)Comment: Specimen 0.57 - 1.25 mg/dL [facility] moderately hemolyzed [facility] EGFR 55Comment: ESTIMATED GFR IS mL/min/1.73 sq m [facility] NOT ACCURATE CREATININE [facility] CLEARANCE IN PREDICTING GLOMERULAR FILTRATION RATE. ESTIMATED GFR IS NOT APPLICABLE FOR DIALYSIS PATIENTS. Specimen Blood Performing Organization Address City/[facility] Centercode Phone Number [id number] [place] [address] * Hemoglobin (06/28/2018 7:59 AM CDT) Only the most recent of 2 results within the time period is included. Hemoglobin 14.4 13.7 - 17.5 GM/DL [facility] Specimen Blood Performing Organization Address City/[facility] Centercode Phone Number [phone] [place] [address] * ECHOCARDIOGRAM REPORT - SCAN (06/15/2018 9:22 PM CDT) Narrative Performed At * 2D Echo W/Doppler(CW/PW/Color) (06/15/2018 2:31 PM CDT) Ejection Fraction [facility] Specimen Narrative Performed At Transthoracic Echocardiography Report (TTE) [facility] Demographics [facility] Patient Name LUISITO EDWARD Date of Study06/15/2018 SHAISTA [id number] Male Visit Number [id number] Room NumberOP Number Date of Birth1965Referring PhysicianNair Priyank JAIMES Age52 year(s)SonographerNolan Champagne Interpreting Jaime Pendleton MD Physician Procedure Type of Study TTE procedure:2DECHO W DOPPLER(CW/PW/COLOR) Indications:Known or suspected heart failure. Clinical History AICD,CARDIAC ARREST,CPAP,DM,DVT,GOUT,HTN,HYPOTHYROIDISM,NICMP,OBESITY, PANCREATITUS,PHOBIA,PTSD Contrast Medium: Definity. Amount - 2 ml Height: 75 inches Weight: 127.91 kg (282 lbs) BSA: 2.54 m^2 BMI: 35.25 kg/m^2 HR: 96 bpm BP: 118/80 mmHg Summary 1. LV is moderately enlarged. LV function is severely reduced. LVEF is 20-24% 2. Diastology: Not well evaluated 3. Normal Rv size. Depressed RV function 4. Mild TR. Estimated PASP is 55-60 mm Hg 5. No pericardial effusion Previous Study In comparison with the prior exam 06/23/2016 the following changes are noted: PAP higher . Signature Findings Left Ventricle LV endocardium is partially visualized with IV ultrasound enhancing agent. The left ventricle is chamber size (by vol index) is moderately enlarged. Normal LV wall thickness. All of the LV segments are severely hypokinetic . Estimated LVEF by qualitative assessment is severely reduced (20-24%) . Left AtriumLA size is moderately enlarged . Right VentricleRV is partially visualized. RV chamber size is mildly enlarged . Global RV systolic function is depressed . Right Atrium RA size is dilated. RA pacing wire is visualized . Aortic Valve AoV is not well visualized. Mitral Valve Normal MV structure.by limited views Tricuspid ValveMild tricuspid regurgitation. Estimated peak systolic PA pressure is 55-60 mmHg . Pulmonic Valve Normal PV structure and function by limited views and Doppler. AortaAortic root size (SInus of Valsalva diameter) is normal . PericardiumNo evidence of pericardial effusion. IVC/SVC/PA/PV/PleuralThe estimated RA pressure by IVC dynamics 16-20mmHg . Chambers/Structures Left Atrium LA Dimension: 5.33 cmLA Area: 30.88 cm^2 LA Volume: 117.4 ml LA Vol. Index: 46 ml/m^2 Left Ventricle LVIDd: 6.4 cm LV Septum Diastolic: 0.97 cm LV PW Diastolic: 1.15 cm LVEDV Tarango's:248.5 ml LVEDVI: 98 ml/m^2 LVOT Diameter: 2.36 cm Aorta Ao Root S of Betty.: 3.24 cm Doppler/Quantitative Measurements LVOT Peak Velocity: 0.77 m/s Peak Gradient: 2.4 mmHg Mean Velocity: 0.47 m/s Mean Gradient: 1.07 mmHg LVOT Diameter: 2.36 cmLVOT VTI: 13.02 cm LVOT Area: 4.37 cm^2LVOT SV:56.93 ml LVOT CO: 5.46 l/min LVOT CI: 2.15 l/min/m^2 Procedure Note Interface, External Ris In - 06/15/2018 6:41 PM CDT Transthoracic Echocardiography Report (TTE) Demographics Patient Name LUISITO EDWARD Date of Study 06/15/2018 [place] Gender Male Visit Number [id number] Race Room Number OP Number Date of 1965 Referring Physician Estephanie Yost MD Age 52 year(s) 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 Clinical History AICD,CARDIAC ARREST,CPAP,DM,DVT,GOUT,HTN,HYPOTHYROIDISM,NICMP,OBESITY, PANCREATITUS,PHOBIA,PTSD Contrast Medium: Definity. Amount - 2 ml Height: 75 inches Weight: 127.91 kg (282 lbs) BSA: 2.54 m^2 BMI: 35.25 kg/m^2 HR: 96 bpm BP: 118/80 mmHg Summary 1. LV is moderately enlarged. LV function is severely reduced. LVEF is 20-24% 2. Diastology: Not well evaluated 3. Normal Rv size. Depressed RV function 4. Mild TR. Estimated PASP is 55-60 mm Hg 5. No pericardial effusion Previous Study In comparison with the prior exam 06/23/2016 the following changes are noted: PAP higher . Signature Findings Left Ventricle LV endocardium is partially visualized with IV ultrasound enhancing agent. The left ventricle is chamber size (by vol index) is moderately enlarged. Normal LV wall thickness. All of the LV segments are severely hypokinetic . Estimated LVEF by qualitative assessment is severely reduced (20-24%) . Left Atrium LA size is moderately enlarged . Right Ventricle RV is partially visualized. RV chamber size is mildly enlarged . Global RV systolic function is depressed . Right Atrium RA size is dilated. RA pacing wire is visualized . Aortic Valve AoV is not well visualized. Mitral Valve Normal MV structure.by limited views Tricuspid Valve Mild tricuspid regurgitation. Estimated peak systolic PA pressure is 55-60 mmHg . Pulmonic Valve Normal PV structure and function by limited views and Doppler. Aorta Aortic root size (SInus of Valsalva diameter) is normal . Pericardium No evidence of pericardial effusion. IVC/SVC/PA/PV/Pleural The estimated RA pressure by IVC dynamics 16-20mmHg . Chambers/Structures Left Atrium LA Dimension: 5.33 cm LA Area: 30.88 cm^2 LA Volume: 117.4 ml LA Vol. Index: 46 ml/m^2 Left Ventricle LVIDd: 6.4 cm LV Septum Diastolic: 0.97 cm LV PW Diastolic: 1.15 cm LVEDV Tarango's:248.5 ml LVEDVI: 98 ml/m^2 LVOT Diameter: 2.36 cm Aorta Ao Root S of Betty.: 3.24 cm Doppler/Quantitative Measurements LVOT Peak Velocity: 0.77 m/s Peak Gradient: 2.4 mmHg Mean Velocity: 0.47 m/s Mean Gradient: 1.07 mmHg LVOT Diameter: 2.36 cm LVOT VTI: 13.02 cm LVOT Area: 4.37 cm^2 LVOT SV:56.93 ml LVOT CO: 5.46 l/min LVOT CI: 2.15 l/min/m^2 Performing Organization Address [facility] Phone Number [facility] * ARRYTHMIA IMPLANT REPORT - SCAN (06/01/2018 3:31 PM CDT) Only the most recent of 2 results within the time period is included. Narrative Performed At * TRANSFUSION SERVICE REPORT - SCAN (05/25/2018 5:55 PM CDT) Narrative Performed At * RHYTHM STRIP - SCAN (05/25/2018 1:23 PM CDT) Narrative Performed At * Potassium-Stat Lab (05/24/2018 8:55 AM CDT) Potassium 3.7 3.6 - 5.5 meq/L [facility] Specimen Blood, Arterial Performing Organization Address [facility] Phone Number [facility] [address] [place] [address] [address] [facility] * Sodium Na-Stat Lab (05/24/2018 8:55 AM CDT) Sodium 135 135 - 148 meq/L [facility] Specimen Blood, Arterial Performing Organization Address [facility] Phone Number [facility] [address] [place] [address] [facility] * Glucose-Stat Lab (05/24/2018 8:55 AM CDT) Glucose 139 (H) 70 - 110 mg/dL [facility] Specimen Blood, Arterial Performing Organization Address [facility] Phone Number [address] * HGB/HCT (H&H)-Stat Lab (05/24/2018 8:55 AM CDT) Hemoglobin 13.8 13.0 - 16.8 g/dL [facility] Hematocrit 41.0 40.0 - 50.0 % [facility] Specimen Blood, Arterial Performing Organization Address [facility] Phone Number [address] * Blood gas, arterial (05/24/2018 8:55 AM CDT) pH, Arterial 7.38 7.35 - 7.45 [facility] pCO2, Arterial 44 35 - 45 mmHg [facility] pO2, Arterial 476 (H) 80 - 90 mmHg [facility] O2 Sat, Arterial 99.9 (H) 96.0 - 97.0 % [facility] HCO3, Arterial 26 21 - 29 mmol/L [facility] Base Excess, Arterial -0.1 -2.0 - 3.0 mmol/L [facility] Patient Temperature 36.0 C [facility] FIO2 98.0 % [facility] Specimen Blood, Arterial Performing Organization Address [facility] Phone Number [address] * Type and screen, automated (05/24/2018 7:05 AM CDT) ABO/RH AUTOMATED (BEAKER) A POSITIVE [facility] Ab Scrn NEGATIVE [facility] Specimen Blood Performing Organization Address City/[facility]/[place] [address] [phone] * Glucose (05/16/2018 2:26 PM CDT) Glucose 230 (H) 70 - 105 mg/dL [facility] Specimen Blood Performing Organization Address City/[facility] [place] [address] [phone] * Electrolytes (05/16/2018 2:26 PM CDT) Sodium 139 136 - 145 meq/L [facility] Potassium 4.7Comment: Specimen slightly 3.5 - 5.1 meq/L [facility] hemolyzed [facility] Chloride 103 98 - 107 meq/L [facility] CO2 25 22 - 29 meq/L [facility] Specimen Blood Performing Organization Address [facility] [place] [address] [phone] [address] * Miscellaneous lab test (03/09/2018 1:43 PM RESEARCH ASSOCIATE MOLECULAR BIOLOGY) Only the most recent of 2 results within the time period is included. Scan Result [facility] Specimen Blood Narrative Performed At Performing Organization Address City/[facility] Centercode Phone Number [facility] [address] [place], [place] * Hemoglobin A1c (03/09/2018 1:43 PM RESEARCH ASSOCIATE MOLECULAR BIOLOGY) Only the most recent of 2 results within the time period is included. Hemoglobin A1C 7.9 (H) 4.3 - 6.1 % [facility] Specimen Blood Performing Organization Address City/[facility]/Zipcode Phone Number [address] [address] [phone] [place] [address] * Uric acid (10/06/2017 11:30 AM CDT) Uric Acid 11.3 (H) 2.6 - 7.2 mg/dL [facility] Specimen Blood Performing Organization Address City/[facility]/Zipcode Phone Number [facility] [address], [place] [phone] [facility] * Hepatic function panel (09/05/2017 2:34 PM CDT) Protein, Total 5.9 (L)Comment: Specimen 6.0 - 8.3 gm/dL [facility] slightly hemolyzed [facility] Albumin 3.1 (L)Comment: Specimen 3.5 - 5.0 g/dL [facility] slightly hemolyzed [facility] Total Bilirubin 1.3 (H)Comment: Specimen 0.2 - 1.2 mg/dL [facility] Bilirubin, Direct 0.5Comment: Specimen slightly 0.1 - 0.5 mg/dL [facility] Alkaline Phosphatase 77 40 - 150 U/L [facility] AST 22Comment: Specimen slightly 5 - 34 U/L [facility] ALT 20Comment: Specimen slightly 6 - 55 U/L [facility] Specimen Blood Performing Organization Address City/[facility]/Zipcode Phone Number [facility] [address] [place] [address] [facility] after 08/31/2017 Insurance Payer Benefit Subscriber ID Type Phone Address Plan / Group [employer] - MEDICARE MGD CARE [employer] xxxxxxxx [phone] [address] [place] [id number] HMO POS PPO Advance Directives For more information, please contact: [facility] [address] [place], [place] [phone] Date Inactivated Comments Code Status Date Activated 06/28/2018 4:18 PM Full Code 06/28/2018 7:37 AM This code status was determined by: Patient 05/24/2018 2:56 PM Full Code 05/24/2018 5:52 AM This code status was determined by: Patient 06/26/2016 2:00 PM Full Code 06/22/2016 3:25 PM This code status was determined by: Patient 03/25/2016 5:54 PM Full Code 03/21/2016 11:52 PM This code status was determined by: Patient 01/14/2016 12:52 AM Full Code 01/06/2016 7:15 AM This code status was determined by: Patient
--- OUTSIDE RECORDS SUMMARY | 2018-09-01 16:36 | XMS REPORT | Continuity of Care Document ---
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 WATERS Active 11/14/2014 [facility] NE W PATIENT/ LT ANKLE, CROWDER/ SEEN BY Active 08/26/2014 [facility] OPEN WOUND UNSPEC SITE COMPLICATED Active 07/11/2014 07/24/2014 [facility] CHF UNSPECIFIED Active 06/27/2014 08/18/2014 [facility] UNSPECIFIED VENOUS INSUFFICIENCY Active 06/27/2014 08/18/2014 [facility] ULCER OF LOWER LIMB, UNSPECIFIED Active 06/27/2014 08/18/2014 [facility] DIAB JAYNE W/O MENT OF COMP, TYPE II OR UNSP, NS UC Active 06/27/2014 08/18/2014 [facility] UNSPECIFIED ESSENTIAL HYPERTENSION Active 06/27/2014 08/18/2014 [facility] OTHER AND UNSPECIFIED HYPERLIPIDEMIA Active 06/27/2014 08/18/2014 [facility] UNSPECIFIED HYPOTHYROIDISM Active 06/27/2014 08/18/2014 [facility] WOUNDS ON LOWER LEGS - REFERRED FROM Active 05/05/2014 [facility] Medications Medication Details Route Status Patient Instructions Ordering Provider Order Date Source sertraline oral Active 07/22/2014 [facility] docusate sodium oral Active 07/22/2014 [facility] atorvastatin oral Active 07/22/2014 [facility] aluminum-mag hydroxide-simethicone oral Active 07/22/2014 [facility] levothyroxine oral Active 07/22/2014 [facility] oxycodone-acetaminophen oral Active 07/22/2014 [facility] zinc sulfate oral Active 07/22/2014 [facility] digoxin oral Active 07/22/2014 [facility] amiodarone oral Active 07/22/2014 [facility] spironolactone oral Active 07/22/2014 [facility] lisinopril oral Active 07/22/2014 [facility] metolazone oral Active 07/22/2014 [facility] methocarbamol oral Active 07/22/2014 [facility] metoprolol succinate oral Active 07/22/2014 [facility] zolpidem oral Active 07/22/2014 [facility] gabapentin oral Active 07/22/2014 [facility] clonazepam oral Active 07/22/2014 [facility] bumetanide oral Active 07/22/2014 [facility] pantoprazole oral Active 07/22/2014 [facility] insulin detemir subcutaneous Active 07/22/2014 [facility] febuxostat oral Active 07/22/2014 [facility] Pancrelipase 5000 oral WITH MEALS Active 07/22/2014 [facility] Allergies, Adverse Reactions, Alerts Substance Category Reaction Severity Reaction type Status Date Reported Comments Source NITRATES Propensity to adverse reactions [facility] ZOFRAN Propensity to adverse reactions [facility] Immunizations No Data Provided for This Section Results No Data Provided for This Section Pathology Reports No Data Provided for This Section Diagnostic Reports Report Value Date Source Ankle 3 views DX EXAM: XR LEFT ANKLE 3 VIEWS DATE: 2014-09-10 12:12:00 INDICATION: Ulcer of ankle COMPARISON: None available. TECHNIQUE: AP, oblique, and lateral radiographs of the left ankle. FINDINGS: No fracture, dislocation or other acute bony abnormality is identified. Lateral and superior to the lateral malleolus, there is a bandage and a superficial soft tissue defect, with surrounding swelling about the ankle, most in keeping with a shallow ulcer. Deep to this, there is no cortical erosion, osseous destruction, or periosteal reaction to suggest osteomyelitis. 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 IMPRESSION: 1. Shallow ulcer lateral and superior to the lateral malleolus, with no underlying renographic finding to suggest acute osteomyelitis. 2. 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 09/10/2014 [facility] Consultation Notes No Data Provided for This Section Discharge Summaries No Data Provided for This Section History and Physicals No Data Provided for This Section Vital Signs Vital Sign Value Date Comments Source Systolic (mm Hg) 150 08/18/2014 [facility] Diastolic (mm Hg) 76 08/18/2014 [facility] Heart Rate 78 08/18/2014 [facility] Temperature Oral (F) 97.4 F 08/18/2014 [facility] Systolic (mm Hg) 102 07/22/2014 [facility] Diastolic (mm Hg) 62 07/22/2014 [facility] Heart Rate 72 07/22/2014 [facility] Temperature Oral (F) 96.9 F 07/22/2014 Home Health Encounters Location Location Details Encounter Type Encounter Number Reason For Visit Attending Provider ADM Date DC Date Status Source Outpatient [id number] KAMINI LEVIN 07/22/2014 08/18/2014 Home Health [facility] [id number] Jessy Waters 09/10/2014 10/10/2014 [facility] [id number] Jessy Waters 10/17/2014 11/16/2014 [facility] [id number] Jessy Waters 02/23/2015 03/25/2015 [facility] Procedures No Data Provided for This Section Assessment and Plan No Data Provided for This Section Plan of Care Plan of Care Date Source This patient has no known plan of care. 08/18/2014 [facility] This patient has no known plan of care. 07/24/2014 [facility] Social History Social History Date Source No data available for this section 03/25/2015 [facility] This patient has no known social history. 08/18/2014 [facility] Family History No Data Provided for This Section Advance Directives No Data Provided for This Section Functional Status No Data Provided for This Section
[2018-09-01] MEDS ORDERED: SODIUM CHLORIDE 0.9% 1000ML 1,000 ML IV SCH (16:45)
[2018-09-01] MEDS ORDERED: METOPROLOL TART50 MG PO (17:13)
--- NOTE | 2018-09-01 17:51 | Diagnostic Imaging Report ---
EXAM: CT of the abdomen and pelvis WITHOUT contrast HISTORY: Stomach pain COMPARISON: None available. TECHNIQUE: The abdomen and pelvis were scanned utilizing a multidetector helical scanner. Coronal and sagittal reformats are available. PROTOCOL: Routine IV CONTRAST: None, which limits sensitivity and specificity of evaluation of the soft tissues and vascular structures. ORAL CONTRAST: None, which limits sensitivity and specificity of evaluation of the bowel. RADIATION DOSE: Total DLP: 1421.06 mGy*cm Estimated effective dose: (DLP x 0.015 x size factor) Dose modulation, iterative reconstruction, and/or weight based adjustment of the mA/kV was utilized to reduce the radiation dose to as low as reasonably achievable. COMPLICATIONS: None FINDINGS: LOWER THORAX: Implanted cardiac leads. HEPATOBILIARY: No definite focal hepatic lesions. No biliary ductal dilatation. The gallbladder is not seen, correlate for prior cholecystectomy. SPLEEN: No splenomegaly. PANCREAS: Subtle 1.3 cm focal hypodensity at the body of the pancreas (series 2 image 37). No ductal dilation subtle regional fat stranding and small nonspecific lymph nodes. ADRENALS: No adrenal nodule. KIDNEYS/URETERS: No hydronephrosis. No radiopaque stones. A subtle 1 cm hypodensity at the interpolar region of the right kidney, likely a small cyst. A partially exophytic 1 cm hyperdense lesion at the inferior pole of the left kidney. PELVIC ORGANS/BLADDER: The urinary bladder is predominantly decompressed with diffusely thickened appearance of the wall. PERITONEUM / RETROPERITONEUM: No free air or fluid. GI TRACT: On limited evaluation of the gastrointestinal tract, no dilation or wall thickening identified. The appendix appears normal. LYMPH NODES: No pathologically enlarged lymph nodes. VESSELS: Filters within the duplicated inferior vena cava. BONES: Multilevel degenerative changes of the thoracolumbar spine, most notably severe at L5-S1 with bilateral L5 pars interarticularis defects and minimal grade 1 anterolisthesis of L5 on S1. Multiple median sternotomy wires. SOFT TISSUES: Diffuse muscle atrophy. IMPRESSION: 1. Findings which could be seen in the setting of pancreatitis. Correlate with laboratory values. Regarding the subtle pancreatic body hypodensity, this may reflect focal edema; however, recommend a follow-up CT of the abdomen with and without contrast after resolution of acute symptoms (such as in 6-8 weeks) to exclude an underlying lesion. 2. Probable 1 cm hyperdense left renal cyst, this also can be further characterized on the follow-up CT of the abdomen with and without contrast. 3. Probable incidental simple right renal cyst. Signed by: Dr. Pollo Lara D.O., M.M.M. on 09/01/2018 5:48 PM
[2018-09-01] MEDS ORDERED: MORPHINE SULFATE INJ 4 MG/ML INJ 1ML ONE (18:39)
[2018-09-01] MEDS ORDERED: PROMETHAZINE HCL (IM) 25 MG/ML VIAL ONE (19:05)
[2018-09-01] MEDS ORDERED: PROMETHAZINE 12.5MG/ NACL 0.9% 12.5 MG/50 ML BAG IV ONE (19:15)
[2018-09-01] MEDS ORDERED: MORPHINE SULFATE 2 MG/ML SYR 1ML IV STA (19:15)
[2018-09-01] MEDS ORDERED: PROMETHAZINE12.5 M1 PO (19:20)
[2018-09-01] MEDS ORDERED: ULTRAM50 MG PO (19:20)
[2018-09-01] MEDS ORDERED: OMEPRAZOLE20 M1 PO (19:20)
[2018-09-01] MEDS ORDERED: COLACE100 MG PO (19:20)
== END 2018-09-01 19:53 | disposition home or self-care (01) ==
LOC: FSED 16:28
DX: R10.13 Epigastric pain (principal); E86.0 Dehydration; I10 Essential (primary) hypertension; E10.9 Type 1 diabetes mellitus without complications; I25.10 Atherosclerotic heart disease of native coronary artery without angina pectoris; Z95.1 Presence of aortocoronary bypass graft
CPT/HCPCS: 36415; 74176; 80053; 83605; 83690; 85025; 93005; 99284; J2270 ×2; J2550

== ENCOUNTER 2019-09-18 19:28 | Emergency (ER) | payer MEDICARE ==
[~2019-09-18] VITALS: Ht 190.5 cm; Wt 160.1 kg
[~2019-09-18 19:28] MED LIST changes: +COLACE100 MG PO; +METOPROLOL TART50 MG PO; +OMEPRAZOLE20 M1 PO; +PROMETHAZINE12.5 M1 PO; +ULTRAM50 MG PO
[2019-09-18 19:58] LABS: BASOPHILS # (AUTO) 0.1 (0.0-0.1); BASOPHILS % 0.7 % (0.0-1.0); EOSINOPHILS # (AUTO) 0.1 (0.0-0.4); EOSINOPHILS % 0.5 % (0.0-6.0); HEMATOCRIT 54.5 % (38.2-49.6); HEMOGLOBIN 16.5 g/dL (14.0-18.0); LYMPHOCYTES # (AUTO) 2.2 (1.0-3.2); LYMPHOCYTES % 19.1 % (18.0-39.1); MEAN CORPUSCULAR HEMOGLOBIN 27.2 pg (28-32); MEAN CORPUSCULAR HGB CONC 30.3 g/dL (31-35); MEAN CORPUSCULAR VOLUME 89.9 fL (81-99); MONOCYTES # (AUTO) 1.1 (0.2-0.8); MONOCYTES % 10.1 % (4.4-11.3); NEUTROPHILS # (AUTO) 7.8 (2.1-6.9); PLATELET COUNT 283 x10e3/uL (140-360); RED BLOOD COUNT 6.06 x10e6/uL (4.3-5.7); RED CELL DISTRIBUTION WIDTH 19.4 % (11.7-14.4)
[2019-09-18 20:03] LABS: INR 1.33; PROTHROMBIN TIME 17.2 seconds (11.9-14.5)
[2019-09-18 20:04] LABS: PARTIAL THROMBOPLASTIN TIME 32.1 seconds (23.8-35.5)
[2019-09-18 20:13] LABS: ALBUMIN 2.8 g/dL (3.5-5.0); ALBUMIN/GLOBULIN RATIO 0.8 (0.8-2.0); AMYLASE 24 U/L (25-125); ANION GAP 18.1 mmol/L (8-16); CALCIUM 8.9 mg/dL (8.4-10.2); CREATININE, SERUM 1.98 mg/dL (0.72-1.25); LIPASE 16 U/L (8-78)
[2019-09-18 20:17] LABS: POTASSIUM 6.1 mmol/L (3.5-5.1)
--- NOTE | 2019-09-18 20:18 | Emergency Department Note ---
History of Present Illnes History of Present Illness Chief Complaint: General Medicine Complaints History of Present Illness This is a 53 year old male PT AAOX3 PRESENTS TO ED WITH REPORT OF SOB, ABDOMINAL "PRESSURE" SINCE DC'D FROM [facility] DT LAST WEEK; PT REPORTS BALLOON PUMP FOLLOWED BY CARDIAC ABLATION LAST WEEK; RESP ARE EVEN, SHALLOW, UNLABORED, O2 SAT RA 94%; . 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 Any updates have been documented here. Past Medical History Recent Fever: No Clinical Suspicion of Infectio: No New/Unexplained Change in Ment: No Past Medical History: Hypertension, Diabetes, A-Fib Other Medical History: PANCREATITS, CHF, MA Past Surgical History: Cholecysctectomy, CABG, Hernia Repair Other Surgery: icd placement, cardiac washout, multiple heart surgeries, cholecystectomy, Social History Smoking Cessation: Never Smoker Counseling Performed: No Alcohol Use: None Any Illegal Drug Use: No Family History Family history of heart diseas: Yes Other family history HTN,DM,CAD Other Last Tetanus: UTD Review of Systems Review of Systems Constitutional: Reports no symptoms EENTM: Reports no symptoms Cardiovascular: Reports no symptoms Respiratory: Reports as per HPI Gastrointestinal: Reports as per HPI Genitourinary: Reports no symptoms Musculoskeletal: Reports no symptoms Integumentary: Reports no symptoms Neurological: Reports no symptoms Psychological: Reports no symptoms Endocrine: Reports no symptoms Hematological/Lymphatic: Reports no symptoms Physical Exam Related Data Allergies: Coded Allergies: nitroglycerin (Verified Allergy, Severe, RASH, 05/21/16) ondansetron HCl (Verified Allergy, Unknown, 05/21/16) Triage Vital Signs Vital Signs Date Time Temp Pulse Resp B/P (MAP) Pulse Ox O2 Delivery O2 Flow Rate FiO2 09/18/19 19:53 98.6 110 25 115/81 96 Room Air 4.0 Vital signs reviewed: Yes Physical Exam CONSTITUTIONAL Constitutional: Present well-developed, Present well-nourished HENT HENT: Present normocephalic, Present atraumatic, Present oropharynx clear/ moist, Present nose normal HENT L/R: Present left ext ear normal, Present right ext ear normal EYES Eyes: Reports PERRL, Reports conjunctivae normal NECK Neck: Present ROM normal PULMONARY Pulmonary: Present effort normal, Present other (BREATH SOUNDS DECREASED THROUGH OUT) CARDIOVASCULAR Cardiovascular: Present irregular rhythm, Present heart sounds normal, Present capillary refill normal, Present tachycardia (108) GASTROINTESTINAL Abdominal: Present soft, Present bowel sounds normal, Present tender (MILD DIFFUSE TENDERNESS) GENITOURINARY Genitourinary: Present exam deferred SKIN Skin: Present warm, Present dry MUSCULOSKELETAL Musculoskeletal: Present ROM normal, Present swelling (3+PITING EDEMA TO BILATERAL LOWER EXTREMITIES) NEUROLOGICAL Neurological: Present alert, Present oriented x 3, Present no gross motor or sensory deficits PSYCHOLOGICAL Psychological: Present mood/affect normal, Present judgement normal Results Laboratory Result Diagram: 09/18/191934 Laboratory Laboratory Tests Test 09/18/19 20:55 09/18/19 19:35 Urine Color Yellow (YELLOW) Urine Clarity Sl cloudy (CLEAR) Urine pH 6 (5 - 7) Urine Specific [place] 1.020 (1.010-1.025) Urine Protein Trace (NEGATIVE) Urine Glucose (UA) 1+ (NEGATIVE) Urine Ketones Negative (NEGATIVE) Urine Blood Moderate (NEGATIVE) Urine Nitrite Negative (NEGATIVE) Urine Bilirubin Negative (NEGATIVE) Urine Urobilinogen 0.2 mg/dL (0.2 - 1) Urine Leukocyte Esterase Negative (NEGATIVE) Urine RBC 6-10 /HPF (0-5) Urine WBC None /HPF (0-5) Urine Epithelial Cells None /LPF (NONE) Urine Bacteria Moderate /HPF (NONE) Urine Hyaline Casts 2-5 (0-1) White Blood Count 11.24 x10e3/uL (4.8-10.8) Red Blood Count 6.06 x10e6/uL (4.3-5.7) Hemoglobin 16.5 g/dL (14.0-18.0) Hematocrit 54.5 % (38.2-49.6) Mean Corpuscular Volume 89.9 fL (81-99) Mean Corpuscular Hemoglobin 27.2 pg (28-32) Mean Corpuscular Hemoglobin Concent 30.3 g/dL (31-35) Red Cell Distribution Width 19.4 % (11.7-14.4) Platelet Count 283 x10e3/uL (140-360) Neutrophils (%) (Auto) 69.0 % (38.7-80.0) Lymphocytes (%) (Auto) 19.1 % (18.0-39.1) Monocytes (%) (Auto) 10.1 % (4.4-11.3) Eosinophils (%) (Auto) 0.5 % (0.0-6.0) Basophils (%) (Auto) 0.7 % (0.0-1.0) Neutrophils # (Auto) 7.8 (2.1-6.9) Lymphocytes # (Auto) 2.2 (1.0-3.2) Monocytes # (Auto) 1.1 (0.2-0.8) Eosinophils # (Auto) 0.1 (0.0-0.4) Basophils # (Auto) 0.1 (0.0-0.1) Absolute Immature Granulocyte (auto 0.07 x10e3/uL (0-0.1) Prothrombin Time 17.2 seconds (11.9-14.5) Prothromb Time International Ratio 1.33 Activated Partial Thromboplast Time 32.1 seconds (23.8-35.5) Sodium Level 137 mmol/L (136-145) Potassium Level 6.1 mmol/L (3.5-5.1) Chloride Level 104 mmol/L (98-107) Carbon Dioxide Level 21 mmol/L (22-29) Anion Gap 18.1 mmol/L (8-16) Blood Urea Nitrogen 52 mg/dL (7-26) Creatinine 1.98 mg/dL (0.72-1.25) Estimat Glomerular Filtration Rate 35 ML/MIN (60-) BUN/Creatinine Ratio 26 (6-25) Glucose Level 183 mg/dL (74-118) Calcium Level 8.9 mg/dL (8.4-10.2) Total Bilirubin 1.3 mg/dL (0.2-1.2) Aspartate Amino Transf (AST/SGOT) 47 IU/L (5-34) Alanine Aminotransferase (ALT/SGPT) 68 IU/L (0-55) Alkaline Phosphatase 109 IU/L (40-150) Creatine Kinase 32 IU/L (30-200) Creatine Kinase MB 1.50 ng/mL (0-5.0) Troponin I 0.034 ng/mL (0-0.300) B-Type Natriuretic Peptide 377.5 pg/mL (0-100) Total Protein 6.2 g/dL (6.5-8.1) Albumin 2.8 g/dL (3.5-5.0) Globulin 3.4 g/dL (2.3-3.5) Albumin/Globulin Ratio 0.8 (0.8-2.0) Amylase Level 24 U/L (25-125) Lipase 16 U/L (8-78) Laboratory Tests Test 09/18/19 19:35 White Blood Count 11.24 x10e3/uL (4.8-10.8) Red Blood Count 6.06 x10e6/uL (4.3-5.7) Hemoglobin 16.5 g/dL (14.0-18.0) Hematocrit 54.5 % (38.2-49.6) Mean Corpuscular Volume 89.9 fL (81-99) Mean Corpuscular Hemoglobin 27.2 pg (28-32) Mean Corpuscular Hemoglobin Concent 30.3 g/dL (31-35) Red Cell Distribution Width 19.4 % (11.7-14.4) Platelet Count 283 x10e3/uL (140-360) Neutrophils (%) (Auto) 69.0 % (38.7-80.0) Lymphocytes (%) (Auto) 19.1 % (18.0-39.1) Monocytes (%) (Auto) 10.1 % (4.4-11.3) Eosinophils (%) (Auto) 0.5 % (0.0-6.0) Basophils (%) (Auto) 0.7 % (0.0-1.0) Neutrophils # (Auto) 7.8 (2.1-6.9) Lymphocytes # (Auto) 2.2 (1.0-3.2) Monocytes # (Auto) 1.1 (0.2-0.8) Eosinophils # (Auto) 0.1 (0.0-0.4) Basophils # (Auto) 0.1 (0.0-0.1) Absolute Immature Granulocyte (auto 0.07 x10e3/uL (0-0.1) Prothrombin Time 17.2 seconds (11.9-14.5) Prothromb Time International Ratio 1.33 Activated Partial Thromboplast Time 32.1 seconds (23.8-35.5) Lab results reviewed: Yes Imaging Imaging results reviewed: Yes Impressions Procedure: [id number] DX/CHEST SINGLE (PORTABLE) Exam Date: 09/18/19 Exam Time: 2041 REPORT STATUS: Signed EXAMINATION: CHEST SINGLE (PORTABLE) INDICATION: Short of breath, A. fib COMPARISON: Abdominal CT 09/01/2018 FINDINGS: TUBES and LINES: Left chest wall cardiac device with ventricle. LUNGS: Low lung volumes. Lungs are clear. No consolidations. PLEURA: No pleural effusion or pneumothorax. HEART AND MEDIASTINUM: Cardiac size is mildly enlarged. BONES AND SOFT TISSUES: No acute osseous lesion. Soft tissues are unremarkable. Sternotomy wires. UPPER ABDOMEN: No free air under the diaphragm. IMPRESSION: Mild cardiopulmonary and pulmonary vascular congestion. No discrete radiographic airspace disease however lung evaluation limited by suboptimal technique, low lung volumes, and patient body habitus. Signed by: Tim Swanson DO on 09/18/2019 9:16 PM Dictated By: TIM SWANSON DO 15 Transcribed By: OSEI on 09/18/192115 COPY TO: JOSELINE MENDOZA MD~ Procedure: [id number] CT/CT BRAIN WO Exam Date: Exam Time: REPORT STATUS: Signed EXAMINATION: Head CT HISTORY: Altered mental status, shortness of breath, abdominal pain COMPARISON: None. TECHNIQUE: Helical axial images of the head were obtained. Reformatted coronal and sagittal images from the axial data. Dose modulation, iterative reconstruction, and/or weight based adjustment of the mA/kV was utilized to reduce the radiation dose to as low as reasonably achievable. Image quality: Motion/streaking artifact limits the evaluation of the skull base and posterior cranial fossa. FINDINGS: Parenchyma: 1. Cortical and subcortical encephalomalacia in the right medial parietal lobe/precuneus, likely sequela from remote insult such as ischemia, infection or trauma. 2. Few scattered bilateral hypodensities, likely nonspecific chronic microvascular ischemic changes. 3. No mass or hemorrhage. No CT evidence of acute territorial vascular insult. Extra-axial spaces:No abnormal density. No extra-axial fluid collections Brain volume: Normal for age. Ventricles: No hydrocephalus or displacement. Arteries: No density suggestive of thrombus. Dural sinuses: No abnormal density. Foramen magnum: No mass, Chiari malformation, or basilar invagination. Sella: No obvious mass. Paranasal/mastoid sinuses: Imaged portions unremarkable. Skull/Scalp: No lytic or blastic lesions. No fractures. IMPRESSION: 1. No intracranial mass, acute hemorrhage or cortical infarcts. 2. Right medial parietal chronic insult as above. 3. Minimal chronic microvascular ischemic changes. Signed by: Dr. An Hernandez M.D. on 09/18/2019 9:47 PM Dictated By: AN HERNANDEZ MD 46 Transcribed By: OSEI on 09/18/192146 COPY TO: JOSELINE MENDOZA MD~ Procedure: [id number] CT/CT ABDOMEN/PELVIS WO Exam Date: 09/18/19 Exam Time: 2110 REPORT STATUS: Signed EXAM: CT Abdomen and Pelvis WITHOUT contrast INDICATION: Abdominal pain COMPARISON: Abdominal CT 10/24/2013 TECHNIQUE: Abdomen and pelvis were scanned utilizing a multidetector helical scanner from the lung base to the pubic symphysis without administration of IV contrast. Absence of intravenous contrast decreases sensitivity for detection of focal lesions and vascular pathology. Coronal and sagittal reformations were obtained. Routine protocol was performed. IV CONTRAST: None ORAL CONTRAST: None COMPLICATIONS: None RADIATION DOSE: Total DLP: 893 mGy*cm Estimated effective dose: (DLP x 0.015 x size factor) mSv CTDIvol has been reviewed. It is below the limits set by the Radiation Protocol Committee (RPC). Dose modulation, iterative reconstruction, and/or weight based adjustment of the mA/kV was utilized to reduce the radiation dose to as low as reasonably achievable. FINDINGS: LINES and TUBES: Urinary bladder Galindo catheter in place, retention balloon and tip within the bladder lumen.. LOWER THORAX: Cardiomegaly. Partially visualized cardiac device lead, tip in the right ventricle. Calcifications along the right atrial wall. Trace bilateral pleural effusions. Bibasilar atelectasis. HEPATOBILIARY: Slightly nodular hepatic surface contour and caudate hypertrophy. No focal hepatic lesions. No biliary ductal dilation. GALLBLADDER: No radio-opaque stones or sludge. No wall thickening. SPLEEN: Enlarged spleen, measures up to 16.3 cm. PANCREAS: No focal masses or ductal dilatation. ADRENALS: No adrenal nodules KIDNEYS/URETERS: Mild renal parenchymal volume loss. Small renal cysts. A 1.4 cm hyperdense exophytic nodule in the left renal inferior pole, similar compared to 2014. No hydronephrosis. No stones. GI TRACT: No abnormal distention, wall thickening, or evidence of bowel obstruction. Appendix is normal. PELVIC ORGANS/BLADDER: Mild prostatomegaly. Urinary bladder normally distended. Trace air in the nondependent bladder lumen likely due to Galindo catheter placement. LYMPH NODES: No lymphadenopathy. 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 PERITONEUM / RETROPERITONEUM: Trace ascites. No free air. Mild fat stranding in the mesenteric root fat. BONES: Degenerative changes. Bilateral inferior L5 pars defects. Sternotomy wires. SOFT TISSUES: Mild abdominal subcutaneous edema. IMPRESSION: 1. Volume overload with trace bilateral pleural effusions small volume ascites. Mild renal atrophy. Mild cardiomegaly. 2. Mild prostatomegaly. 3. Subtle findings suggestive of hepatic cirrhosis and portal hypertension with splenic megaly and trace ascites. 4. A 1.4 cm hyperdense exophytic nodule in the left renal inferior pole is likely a benign hemorrhagic renal cyst, similar compared to 2013. Signed by: Tim Swanson DO on 09/18/2019 10:33 PM Dictated By: TIM SWANSON DO 32 Transcribed By: OSEI on 09/18/192232 COPY TO: JOSELINE MENDOZA MD~ Procedures 12 Lead ECG Interpretation ECG Interpretation : ECG: ECG 1 [employer]: Interpreted by ED physician Date: Sep 18, 2019 Time: 19:39 Rhythm: atrial flutter Rate: tachycardia BPM: 102 QRS axis: right T waves normal: Yes Q waves: III, aVF, V1, V2, V3 Clinical Impression: abnormal ECG Critical Care Time Total Critical Care Time (min): 31 Critcal care necessary due to: renal failure Critcal care time spent by me: develop tx plan w patient/surrogate, interpret cardiac output measures, evaluation patient response to tx, examination of patient, obtaining hx from patient/surrogate, order/perform tx or interventions, order/review laboratory studies, order/review radiographic studies, pulse oximetry, re-evaluation of patient condition Assessment & Plan Medical Decision Making MDM PT WITH H/O AFIB, HTN,DM, PRESENTS WITH SOB AND ABDOMINAL PRESSURE SINCE BEING RELEASED FROM [facility] 1 WEEK AGO AFTER HAVING AN AORTIC BALLOON PUMP FOLL OWED BY A CARDIAC ABLATION CBC, CMP. AMYLASE, LIPASE, EKG, CXR, CARDIAC ENZYMES, CT ABD/PELVIS ORDERED TO EVAL FOR MYOCARDIAL INFARCTION, ELECTROLYTE ABNORMALITY, PULMONARY EDEMA, RENAL FAILURE, PANCREATITIS, COLITIS, DIVERTICULITIS PT WITH POTASSIUM OF 6.1 KAYEXALATE 30 GRAMS PO ORDERED 1 AMP CALCIUM GLUCONATE IV ORDERED 1 AMP BICARB IV ORDERED REGULAR INSULIN 10 UNITS IV ORDERED 1 AMP D50 IV ORDERED AGLINDO CATH PLACED AND 600 CC URINE OUTPUT, IT IS POSSIBLE ELEVATED POTASSIUM AND RENAL FUNCTION IS RELATED TO URINARY RETENTION pt transferred to [facility] dr araujo accepts pt for transfer Assessment & Plan Final Impression: (1) Hyperkalemia (2) Acute renal insufficiency (3) Atrial flutter (4) Urinary retention (5) Pleural effusion (6) Ascites Depart Disposition: TRANS TO OTHER [facility] Last Vital Signs Date Time Temp Pulse Resp B/P (MAP) Pulse Ox O2 Delivery O2 Flow Rate FiO2 09/18/19 19:59 110 22 115/81 97 Nasal Cannula 4.0 09/18/19 19:53 98.6 Home Meds Active Scripts Promethazine Hcl (PROMETHAZINE HCL) 12.5 Mg Tablet, 12.5 MG PO TID PRN for NAUSEA for 5 Days, #15 Prov:PEPITO IGLESIAS MD 09/01/18 Docusate Sodium (COLACE) 100 Mg Cap, 100 MG PO BID for 10 Days, #20 CAP Prov:PEPITO IGLESIAS MD 09/01/18 Omeprazole (OMEPRAZOLE) 20 Mg Tablet.dr, 20 MG PO DAILY for 14 Days, #14 Prov:PEPITO IGLESIAS MD 09/01/18 Tramadol Hcl (ULTRAM) 50 Mg Tablet, 50 MG PO TID PRN for ABDOMINAL PAIN for 5 Days, #15 TAB Prov:PEPITO IGLESIAS MD 09/01/18 Gabapentin (GABAPENTIN) 300 Mg Capsule, 300 MG PO TID, #90 CAP 0 Refills Prov:DILEEP DAY MD 09/11/17 Reported Medications Metoprolol Tartrate (METOPROLOL TARTRATE) 50 Mg Tablet, 50 MG PO DAILY for HTN, TAB 09/01/18 Hydrocodone Bit/Acetaminophen (NORCO 5-325 TABLET) 1 Each Tablet, 1 EACH PO Q6H, TAB 04/17/15 [Bumex] No Conflict Check 04/04/15 Metolazone (METOLAZONE) 5 Mg Tablet, 5 MG PO PRN, #30 TAB 10/27/13 Potassium Chloride (KLOR-CON M20) 20 Meq Tabcr, 20 MEQ PO BID 10/27/13 Febuxostat (ULORIC) 80 Mg Tablet, 80 MG PO DAILY, #30 TAB 10/24/13 Colchicine (COLCRYS) 0.6 Mg Tablet, 0.6 MG PO BID, #30 TAB 10/24/13 Lisinopril (Prinivil) 20 Mg Tablet, 20 MG PO daily 12/24/10 JOSELINE MENDOZA MD Sep 18, 2019 20:18
[2019-09-18] MEDS ORDERED: SODIUM BICARBONATE 8.4% INJ 50 ML SYR IV STA (20:19)
[2019-09-18] MEDS ORDERED: DEXTROSE 50% SYRINGE 50 ML IV STA (20:19)
[2019-09-18 20:20] LABS: CREATINE KINASE MB 1.5 ng/mL (0-5.0)
[2019-09-18] MEDS ORDERED: INSULIN REGULAR, HUMAN 100 UNIT/1 ML 3ML VIAL IV ONE (20:30)
[2019-09-18] MEDS ORDERED: CALCIUM GLUCONATE 10% INJ 0.465 MEQ/ML VIAL ONE (20:32)
[2019-09-18] MEDS: SOD POLYSTYRENE SULFONATE SUSP 15 GM/60 ML BTL PO ONE (20:35)
--- NOTE | 2019-09-18 20:50 | NUR ---
16 fr veras catheter inserted using sterile technique per orders. 600cc clear yellow urine return noted. md informed. specimen collected per orders and sent to lab.
--- NOTE | 2019-09-18 20:50 | NUR ---
PATIENT REPEATEDLY ASKING FOR ATIVAN SEVERAL TIMES SCREAMING DOWN THE HALLWAY. DR MENDOZA STATED TO PATIENT HE CANNOT HAVE ATIVAN DUE TO LOW BLOOD PRESSURE PRESENTATION. DR MENDOZA INFORMED PATIENT, PATIENTS VOICE TONE SINCE THEN HAS INCREASED WITH STAFF, ATTEMPTS TO CALM PATIENT DOWN HAVE FAILED, DR MENDOZA INFORMED
[2019-09-18] MEDS ORDERED: LIDOCAINE JELLY 2% 10ML URO-JET ONE (20:54)
[2019-09-18] MEDS ORDERED: CALCIUM GLUCONATE 10% INJ 13.95 MEQ in SODIUM CHLORIDE 0.9% 100 ML 100 ML IV ONE (21:00)
[2019-09-18] MEDS ORDERED: LIDOCAINE JELLY 2% 10ML URO-JET TOP ONE (21:00)
[2019-09-18 21:05] LABS: CLARITY,URINE SL CLOUDY (CLEAR); COLOR,URINE YELLOW (YELLOW); LEUKOCYTE ESTERASE ,URINE NEGATIVE (NEGATIVE)
--- NOTE | 2019-09-18 21:05 | NUR ---
ACCIDENT INVESTIGATOR INFORMED PATIENT OF POC / STATUS, PT RESPONDED BY STATING IN RAISED VOICE, "I JUST WANT TO GO DOWNTOWN, YALL WON'T GIVE ME ANY MEDS FOR MY PANIC ATTACKS OR SOME DAMN ICE WATER. YALL ARE RUDE AND CAUSTIC." PATIENT INFORMED OF NEED FOR RAD RESULTS PRIOR TO ANY PO HYDRATION ORDERED BY ER MD AND ASKED TO NOT YELL AT STAFF.
[2019-09-18 21:06] LABS: BILIRUBIN,URINE NEGATIVE (NEGATIVE); KETONES,URINE NEGATIVE (NEGATIVE); NITRITE,URINE NEGATIVE (NEGATIVE); PROTEIN,URINE DIPSTICK TRACE (NEGATIVE); URINE UROBILINOGEN 0.2 mg/dL (0.2 - 1)
[2019-09-18 21:19] LABS: BACTERIA,URINE MODERATE /HPF
--- NOTE | 2019-09-18 21:19 | Diagnostic Imaging Report ---
EXAMINATION: CHEST SINGLE (PORTABLE) INDICATION: Short of breath, A. fib COMPARISON: Abdominal CT 09/01/2018 FINDINGS: TUBES and LINES: Left chest wall cardiac device with ventricle. LUNGS: Low lung volumes. Lungs are clear. No consolidations. PLEURA: No pleural effusion or pneumothorax. HEART AND MEDIASTINUM: Cardiac size is mildly enlarged. BONES AND SOFT TISSUES: No acute osseous lesion. Soft tissues are unremarkable. Sternotomy wires. UPPER ABDOMEN: No free air under the diaphragm. IMPRESSION: Mild cardiopulmonary and pulmonary vascular congestion. No discrete radiographic airspace disease however lung evaluation limited by suboptimal technique, low lung volumes, and patient body habitus. Signed by: Tim Swanson DO on 09/18/2019 9:16 PM
--- NOTE | 2019-09-18 21:30 | NUR ---
PT YELLING OUT. TO ROOM, PT STATES THAT WANTS TO KNOW "WHAT IS GOING ON, WHEN AM I BEING TRANSFERRED." PT INFORMED THAT WAITING ON CT TO INITIATE TRANSFER.
--- NOTE | 2019-09-18 21:51 | Diagnostic Imaging Report ---
EXAMINATION: Head CT HISTORY: Altered mental status, shortness of breath, abdominal pain COMPARISON: None. TECHNIQUE: Helical axial images of the head were obtained. Reformatted coronal and sagittal images from the axial data. Dose modulation, iterative reconstruction, and/or weight based adjustment of the mA/kV was utilized to reduce the radiation dose to as low as reasonably achievable. Image quality: Motion/streaking artifact limits the evaluation of the skull base and posterior cranial fossa. FINDINGS: Parenchyma: 1. Cortical and subcortical encephalomalacia in the right medial parietal lobe/precuneus, likely sequela from remote insult such as ischemia, infection or trauma. 2. Few scattered bilateral hypodensities, likely nonspecific chronic microvascular ischemic changes. 3. No mass or hemorrhage. No CT evidence of acute territorial vascular insult. Extra-axial spaces:No abnormal density. No extra-axial fluid collections Brain volume: Normal for age. Ventricles: No hydrocephalus or displacement. Arteries: No density suggestive of thrombus. Dural sinuses: No abnormal density. Foramen magnum: No mass, Chiari malformation, or basilar invagination. Sella: No obvious mass. Paranasal/mastoid sinuses: Imaged portions unremarkable. Skull/Scalp: No lytic or blastic lesions. No fractures. IMPRESSION: 1. No intracranial mass, acute hemorrhage or cortical infarcts. 2. Right medial parietal chronic insult as above. 3. Minimal chronic microvascular ischemic changes. Signed by: Dr. Nette Hernandez M.D. on 09/18/2019 9:47 PM
--- NOTE | 2019-09-18 21:57 | NUR ---
PT STATES THAT HIS FATHER, REBEKAH VAUGHN, MAY BE INFORMED OF STATUS, POC. PTS FATHER MAY BE CONTACTED AT [phone]
--- NOTE | 2019-09-18 22:00 | NUR ---
PT YELLING OUT. TO ROOM, PT REQUESTING WATER. PT INFORMED THAT UNABLE TO PROVIDE WATER BECAUSE WAITING FOR CT ABDOMEN RESULTS.
--- NOTE | 2019-09-18 22:36 | Diagnostic Imaging Report ---
EXAM: CT Abdomen and Pelvis WITHOUT contrast INDICATION: Abdominal pain COMPARISON: Abdominal CT 10/24/2013 TECHNIQUE: Abdomen and pelvis were scanned utilizing a multidetector helical scanner from the lung base to the pubic symphysis without administration of IV contrast. Absence of intravenous contrast decreases sensitivity for detection of focal lesions and vascular pathology. Coronal and sagittal reformations were obtained. Routine protocol was performed. IV CONTRAST: None ORAL CONTRAST: None COMPLICATIONS: None RADIATION DOSE: Total DLP: 893 mGy*cm Estimated effective dose: (DLP x 0.015 x size factor) mSv CTDIvol has been reviewed. It is below the limits set by the Radiation Protocol Committee (RPC). Dose modulation, iterative reconstruction, and/or weight based adjustment of the mA/kV was utilized to reduce the radiation dose to as low as reasonably achievable. FINDINGS: LINES and TUBES: Urinary bladder Lawson catheter in place, retention balloon and tip within the bladder lumen.. LOWER THORAX: Cardiomegaly. Partially visualized cardiac device lead, tip in the right ventricle. Calcifications along the right atrial wall. Trace bilateral pleural effusions. Bibasilar atelectasis. HEPATOBILIARY: Slightly nodular hepatic surface contour and caudate hypertrophy. No focal hepatic lesions. No biliary ductal dilation. GALLBLADDER: No radio-opaque stones or sludge. No wall thickening. SPLEEN: Enlarged spleen, measures up to 16.3 cm. PANCREAS: No focal masses or ductal dilatation. ADRENALS: No adrenal nodules KIDNEYS/URETERS: Mild renal parenchymal volume loss. Small renal cysts. A 1.4 cm hyperdense exophytic nodule in the left renal inferior pole, similar compared to 2014. No hydronephrosis. No stones. GI TRACT: No abnormal distention, wall thickening, or evidence of bowel obstruction. Appendix is normal. PELVIC ORGANS/BLADDER: Mild prostatomegaly. Urinary bladder normally distended. Trace air in the nondependent bladder lumen likely due to Lawson catheter placement. LYMPH NODES: No lymphadenopathy. 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 PERITONEUM / RETROPERITONEUM: Trace ascites. No free air. Mild fat stranding in the mesenteric root fat. BONES: Degenerative changes. Bilateral inferior L5 pars defects. Sternotomy wires. SOFT TISSUES: Mild abdominal subcutaneous edema. IMPRESSION: 1. Volume overload with trace bilateral pleural effusions small volume ascites. Mild renal atrophy. Mild cardiomegaly. 2. Mild prostatomegaly. 3. Subtle findings suggestive of hepatic cirrhosis and portal hypertension with splenic megaly and trace ascites. 4. A 1.4 cm hyperdense exophytic nodule in the left renal inferior pole is likely a benign hemorrhagic renal cyst, similar compared to 2014. Signed by: Tim Swanson DO on 09/18/2019 10:33 PM
--- NOTE | 2019-09-18 22:42 | NUR ---
PT REPEATEDLY REMOVING FACE MASK WHILE STAFF IN ROOM. PT INSTRUCTED ON KEEPING FACE MASK ON TO PROTECT HIMSELF AND STAFF.
[2019-09-18] MEDS ORDERED: SODIUM CHLORIDE 0.9% 500ML 500 ML IV ONE (22:45)
[2019-09-18] MEDS ORDERED: SODIUM CHLORIDE 0.9% 500ML 500 ML ONE (22:53)
[2019-09-19] MEDS: SOD POLYSTYRENE SULFONATE SUSP 15 GM/60 ML BTL PO ONE (00:39)
--- OUTSIDE RECORDS SUMMARY | 2019-09-20 20:23 | XMS REPORT | Continuity of Care Document ---
Author Author [employer], CHRISTOPHER NOONAN Organization [employer] Address Unknown Phone Unavailable Care Team Providers Care Finishing Manager Name Role Phone [employer] Unavailable Un available Problems Problem Status Onset Date Classification Date Reported Comments Source NHW Active 1 [facility] FU/DB PER DR. WATERS Active 11/14/2014 [facility] NE W PATIENT/ LT ANKLE, CROWDER/ SEEN BY Active 08/26/2014 [facility] OPEN WOUND UNSPEC SITE COMPLICATED Active 07/11/2014 07/24/2014 [facility] CHF UNSPECIFIED Active 06/27/2014 08/18/2014 [facility] UNSPECIFIED VENOUS INSUFFICIENCY Active 06/27/2014 08/18/2014 [facility] ULCER OF LOWER LIMB, UNSPECIFIED Active 06/27/2014 08/18/2014 [facility] DIAB JAYNE W/O MENT OF COMP, TYPE II OR UNSP, NS UC Active 06/27/2014 08/18/2014 [facility] UNSPECIFIED ESSENTIAL HYPERTENSION Active 06/27/2014 08/18/2014 [facility] OTHER AND UNSPECIFIED HYPERLIPIDEMIA Active 06/27/2014 08/18/2014 [facility] UNSPECIFIED HYPOTHYROIDISM Act felix 06/27/2014 08/18/2014 [facility] WOUNDS ON LOWER LEGS - REFERRED FROM Active 05/05/2014 [facility] Medications Medication Details Route Status Patient Instructions [...] 07/22/2014 [facility] spironolactone oral Active 07/22/2014 [facility] lisinopril oral Active 07/22/2014 [facility] metolazone oral Active 07/22/2014 [facility] methocarbamol oral Active 07/22/2014 [facility] metoprolol succinate oral Active 07/22/2014 [facility] zolpidem oral Active 07/22/2014 [facility] gabapentin oral Active 07/22/2014 [facility] clonazepam oral Active 07/22/2014 [facility] bumetanide oral Active 07/22/2014 [facility] pantoprazole oral Active 07/22/2014 [facility] insulin detemir subcutaneous Active 07/22/2014 [facility] febuxostat oral Active 07/22/2014 [facility] Pancrelipase 5000 oral WITH ME ALS Active 07/22/2014 [facility] Allergies, Adverse Reactions, Alerts Substance Category Reaction Severity Reaction type Status Date Reported Comments Source NITRATES Propensity to adverse reacti ons [facility] ZOFRAN Propensity to adverse reacti ons [facility] Immunizations No Data Provided for This Section [...] medial distal tibial shaft, 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 09/10/2014 [facility] Consultation Notes No Data Provided for This Section Discharge Summaries No Data Provided for This Section History and Physicals No Data Provided for This Section Vital Signs Vital Sign Value Date Comments Source Systolic (mm Hg) 150 08/18/2014 [facility] Diastolic (mm Hg) 76 08/18/2014 [facility] Heart Rate 78 08/18/2014 Home [...] ADM Date DC Date Status Source Outpatient [id number] D ZULEYKA OLLIE 07/22/2014 08/18/2014 Home Health [facility] [id number] Jessy Waters 09/10/2014 10/10/2014 [facility] [id number] Jessy Waters 10/17/2014 11/16/2014 [facility] [id number] Jessy Waters 02/23/2015 03/25/2015 [facility] Procedures No Data Provided for This Section Assessment and Plan No Data Provided for This Section Plan of Care Plan of Care Date Source This patient has no known plan of care. 08/18/2014 [facility] This patient has no known plan of care. 07/24/2014 [facility] Social History Social History Date Source No data available for this section 03/25/2015 [facility] This patient has no known social history. 08/18/2014 [facility] Family History No Data Provided for This Section Advance Directives No Data Provided for This Section Functional Status No Data Provided for This Section
== END 2019-09-19 01:35 | disposition other institution (70) ==
LOC: ER 19:57
DX: J90 Pleural effusion, not elsewhere classified (principal); R18.8 Other ascites; N28.9 Disorder of kidney and ureter, unspecified; I48.92 Unspecified atrial flutter; E87.5 Hyperkalemia; R33.9 Retention of urine, unspecified; I10 Essential (primary) hypertension; E11.9 Type 2 diabetes mellitus without complications; I48.91 Unspecified atrial fibrillation; I50.9 Heart failure, unspecified; I25.2 Old myocardial infarction; Z95.1 Presence of aortocoronary bypass graft
CPT/HCPCS: 36415; 51700; 70450; 71045; 74176; 80053; 81001; 82150; 82550; 82553; 83690; 83880; 84132; 84484; 85025; 85610; 85730; 93005; 99282; J0610; J7040; J7799